=== PATIENT | male | born 1935 | race Caucasian/White ===

== ENCOUNTER 2017-05-10 09:59 | Inpatient (IN) | payer MEDICARE, MEDICAID ==
[2017-05-10] MEDS ORDERED: Ciprofloxacin 400MG IVPREMIX(* 400 MG/200 ML BAG IVPB ONE (10:10)
[2017-05-10] MEDS ORDERED: metroNIDAZOLE IV 500 MG/100ML* 500 MG/100 ML BAG IVPB ONE (10:10)
[2017-05-10] MEDS: NS 0.9% 1000 ML*IV.FLUID IV ONE ×3 (10:25→11:47)
[2017-05-10 10:31] LABS: Hematocrit 46 % (42-52); Hemoglobin 15.2 g/dl (14.0-18.0); Mean Corpuscular HGB Conc 33 g/dl (31-36); Mean Corpuscular Hemoglobin 32 pg (27-31); Mean Corpuscular Volume 95 fL (80-94); Mean Platelet Volume 9 um3 (7.4-10.4); Red Blood Count 4.83 10^6/ul (4.0-5.4); Red Cell Distribution Width 14 % (10.5-15); White Blood Count 21.3 10^3/ul (3.5-10.8)
[2017-05-10 10:33] LABS: Add Diff/Slide Review? Slide Review Added; Comments Flag Yes
[2017-05-10 10:51] LABS: Albumin 3.8 g/dL (3.2-5.2); BUN/Creatinine Ratio 23.5 (8-20); C Reactive Protein 276.41 mg/L (< 5.00); Calcium 10.2 mg/dL (8.6-10.3); EGFR African American 64.5 (>60); EGFR Non-African American 50.2 (>60); Globulin 3.9 g/dL (2-4); Potassium 3.8 mmol/L (3.5-5.0); Total Bilirubin 1.1 mg/dL (0.2-1.0); Total Protein 7.7 g/dL (6.4-8.9)
[2017-05-10 10:56] LABS: Troponin I 0.15 ng/mL (<0.04)
[2017-05-10] MEDS ORDERED: Vancomycin(*) 1,000 MG - ED ONCE IVPB ONE ×2 (11:00)
[2017-05-10] MEDS ORDERED: Vancomycin(*) 1,000 MG VIAL IVPB SCH (11:00)
[2017-05-10 11:03] LABS: FIO2 3
[2017-05-10 11:08] LABS: PCO2 Arterial 42 mmHg (35-45)
--- NOTE | 2017-05-10 11:20 | RAD ---
INDICATION: Sepsis COMPARISON: September 07, 2013 TECHNIQUE: An AP portable view obtained at 1051 hours is submitted. FINDINGS: Bones/Soft Tissues: There are no acute bony findings. There is sternotomy Cardiomediastinal: The cardiac silhouette is mildly prominent. Lungs: There are bilateral patchy interstitial and alveolar infiltrates consistent with an acute pneumonitis. Pleura: There is a moderate-sized left-sided effusion. Other: None IMPRESSION: BILATERAL PATCHY INFILTRATES CONSISTENT WITH ACUTE PNEUMONITIS. LEFT-SIDED EFFUSION.
[2017-05-10 11:35] LABS: Urine Bacteria 3+ (Absent); Urine Bilirubin Negative (Negative); Urine Glucose Negative (Negative); Urine Nitrite Positive (Negative)
[2017-05-10] MEDS ORDERED: Ondansetron INJ* 2 MG/ML VIAL IV PRN (11:48)
[2017-05-10] MEDS ORDERED: Acetaminophen SUPP* 650 MG SUPP PR PRN (11:48)
[2017-05-10 11:57] LABS: Erythrocyte Sed Rate 48 mm/Hr (0-40)
[2017-05-10] MEDS ORDERED: Cefepime(*) 1 GM in NS 0.9% 50 ML* 50 ML IVPB SCH (12:00)
[2017-05-10] MEDS ORDERED: NS 0.9% 1000 ML* 1,000 ML IV SCH ×2 (12:00→22:11)
--- NOTE | 2017-05-10 12:29 | RAD ---
HISTORY: Altered mental status COMPARISONS: December 24, 2011 TECHNIQUE: Multiple contiguous axial CT scans were obtained of the head without intravenous contrast. FINDINGS: HEMORRHAGE/INFARCT: There is no hemorrhage or acute infarct. MASSES/SHIFT: There is no mass or shift. EXTRA-AXIAL SPACES: There are no extra-axial fluid collections. SULCI AND VENTRICLES: There is diffuse and proportional enlargement of the sulci and ventricles. CEREBRUM: There is hypoattenuation of the periventricular and subcortical white matter. BRAINSTEM: There are no focal parenchymal abnormalities. CEREBELLUM: There are no focal parenchymal abnormalities. VESSELS: The vessels are grossly normal. PARANASAL SINUSES: The paranasal sinuses are clear. ORBITS: The orbits are unremarkable. BONES AND SOFT TISSUE: No bone or soft tissue abnormalities are noted. OTHER: None IMPRESSION: NO ACUTE INTRACRANIAL PATHOLOGY. DIFFUSE INVOLUTIONAL CHANGE WITH CHRONIC SMALL VESSEL ISCHEMIC CHANGES.
[2017-05-10] MEDS: Azithromycin IV(*) 500 MG in NS 0.9% 250 ML* 250 ML IVPB SCH (12:49)
[2017-05-10] MEDS: Heparin VIAL(*) 5000 UNITS/ML VIAL (FIVE THOUSAND) SUBCUT SCH ×2 (14:13→20:49)
[2017-05-10] MEDS: Pantoprazole IV* 40 MG IV SCH (14:13)
[2017-05-10] MEDS ORDERED: Cefepime 1 GM in Dextrose(*) 1 GM/50 ML BAG IV SCH (14:35)
[2017-05-10] MEDS: Zinc Oxide 16% PASTE* (Butt Paste) 1 TUBE TOPICAL SCH ×2 (18:41→20:44)
--- NOTE | 2017-05-10 18:58 | ED ---
Trung Gamez Angela, scribed for Doug Manning MD on 05/10/17 at 1013 . Altered Mental Status - HPI Summary HPI Summary: This pt is a 81 y/o male presenting to [facility] via EMS from [facility] for AMS. Nurse reports the pt is in the ED for increased weakness, lethargy and AMS. Per staff in [facility], pt is usually speaking and conversing with people. HPI is limited due to level 5 caveat - AMS. - History Of Current Complaint Chief Complaint: EDAltMentalStatus Stated Complaint: WEAKNESS Hx Obtained From: Patient Onset/Duration: Still Present Timing: Constant, Lasting Hours Character: Lethargy Aggravating Factor(s): Unknown Alleviating Factor(s): Unknown - Allergies/Home Medications Allergies/Adverse Reactions: Allergies Allergy/AdvReac Type Severity Reaction Status Date / Time Sulfamethoxazole Allergy Mild GI Upset Verified 09/07/13 02:00 w/Trimethoprim [From Septra] Amoxicillin [From Augmentin] Allergy Unknown Unknown Verified 09/07/13 02:00 Reaction Details Clavulanic Acid Allergy Unknown Unknown Verified 09/07/13 02:00 [From Augmentin] Reaction Details Home Medications: Home Medications Acetaminophen [Acetaminophen Extra Stren] 1,000 mg PO DAILY PRN MDD 1000mg 05/10 [History Confirmed 05/10/17] Mirtazapine TAB* [Remeron TAB*] 7.5 mg PO BEDTIME 05/10/17 [History Confirmed ] Omeprazole CAP* [Prilosec CAP* 20 MG] 20 mg PO BID 05/10/17 [History Confirmed 05/10/17] Senna/Docusate (NF) [Sennokot-S] 2 tab PO BID 05/10/17 [History Confirmed ] Zinc Oxide 16% PASTE* [Soy's Butt paste] 1 applic TOPICAL TID 05/10/17 [ History Confirmed 05/10/17] traMADol TAB* [Ultram*] 50 mg PO BID MDD 300mg 05/10/17 [History Confirmed 05/10] traMADol TAB* [Ultram*] 50 mg PO Q6HR PRN MDD 300mg 05/10/17 [History Confirmed 05/10/17] PMH/Surg Hx/FS Hx/Imm Hx Endocrine/Hematology History: Denies: Hx Anticoagulant Therapy, Hx Blood Disorders, Hx Blood Transfusions, Hx Bone Marrow Disease, Hx Diabetes, Hx Systemic Lupus Erythematosus, Hx Sickle Cell Disease, Hx Thyroid Disease, Hx Anemia, Hx Unexplained Bleeding, Other Endocrine/Hematological Disorders Cardiovascular History: Reports: Hx Angina, Hx Cardiac Arrest, Hx Cardiomegaly, Hx Congestive Heart Failure, Hx Coronary Artery Disease, Hx Hypercholesterolemia , Hx Hypertension, Hx Peripheral Vascular Disease Denies: Hx Aneurysm, Hx Angioplasty, Hx Auto Implanted Cardiovert Defib, Hx Congenital Heart Disease, Hx Deep Vein Thrombosis, Hx Pacemaker/ICD, Hx Rheumatic Fever, Hx Syncope, Hx Valvular Heart Disease, Other Cardiovascular Problems/Disorders Respiratory History: Reports: Hx Chronic Bronchitis, Other Respiratory Problems/ Disorders - ASPIRATION Denies: Hx Asthma, Hx Chronic Obstructive Pulmonary Disease (COPD), Hx Cystic Fibrosis, Hx Lung Cancer, Hx Pleural Effusion, Hx Pneumonia, Hx Pulmonary Edema, Hx Pulmonary Embolism, Hx Seasonal Allergies, Hx Sleep Apnea GI History: Reports: Hx Gastroesophageal Reflux Disease, Other GI Disorders - gastritis Denies: Hx Cirrhosis, Hx Crohn's Disease, Hx Diverticulosis, Hx Gall Bladder Disease, Hx Gastrointestinal Bleed, Hx Hiatal Hernia, Hx Irritable Bowel, Hx Jaundice, Hx Obstructive Bowel, Hx Ileostomy, Hx Pyloric Stenosis, Hx Ulcer History: Denies: Hx Dialysis, Hx Renal Disease Musculoskeletal History: Reports: Hx Arthritis, Hx Back Problems Denies: Hx Rheumatoid Arthritis Sensory History: Denies: Hx Cataracts, Hx Contacts or Glasses, Hx Eye Injury, Hx Eye Prosthesis, Hx Legally Blind, Hx Vision Problem, Hx Deafness, Hx Hearing Aid, Hx Hearing Problem, Other Sensory Impairments Comment Only: Hx Glaucoma - unkown, Hx Macular Degeneration - unkown Opthamlomology History: Denies: Hx Cataracts, Hx Contacts or Glasses, Hx Eye Injury, Hx Eye Prosthesis, Hx Legally Blind, Hx Vision Problem, Other Sensory Impairments Comment Only: Hx Glaucoma - unkown, Hx Macular Degeneration - unkown Neurological History: Reports: Hx Dementia, Hx Headaches, Other Neuro Impairments/Disorders - normal pressure hydrocephalus Psychiatric History: Reports: Hx Depression, Hx Bipolar Disorder Denies: Hx Anxiety, Hx Attention Deficit Hyperactivity Disorder, Hx Eating Disorder, Hx Panic Disorder, Hx Post Traumatic Stress Disorder, Hx Inpatient Treatment, Hx Community Mental Health Tx, Hx Schizophrenia, Hx Suicide Attempt, Hx of Violent Episodes Against Others, Hx Substance Abuse, Other Psychiatric Issues/Disorders - Cancer History Hx Chemotherapy: No - Surgical History Surgery Procedure, Year, and Place: distant hx hiatal hernia. CABG/BYPASS GRAFT Hx Anesthesia Reactions: No - Immunization History Date of Tetanus Vaccine: UP TO DATE Date of Influenza Vaccine: 2012 Infectious Disease History: Unable to Obtain/Confirm Infectious Disease History: Denies: Hx Clostridium Difficile, Hx Hepatitis, Hx Human Immunodeficiency Virus (HIV), Hx of Known/Suspected MRSA, Hx Shingles, Hx Tuberculosis, Hx Known/ Suspected VRE, Hx Known/Suspected VRSA, History Other Infectious Disease, Traveled Outside the [place] in Last 30 Days - Family History Known Family History: Positive: Unknown - level 5 caveat - AMS - Social History Alcohol Use: None Substance Use Type: Reports: None Hx Tobacco Use: Yes Type: Cigarettes Have You Smoked in the Last Year: No - QUIT 25+ YRS AGO Review of Systems Constitutional: Other - lethargic Negative: Fever, Chills Neurological: Other - Altered mental status, increased weakness All Other Systems Reviewed And Are Negative: No - Comments Additional Review of Systems Comments: ROS is limited due to level 5 caveat - AMS Physical Exam - Summary Physical Exam Summary: VITAL SIGNS: Reviewed. GENERAL: Patient is a well-developed male. Patient is not in any acute respiratory distress. Pt is lethargic. HEAD AND FACE: No signs of trauma. No ecchymosis, hematomas or skull depressions. No sinus tenderness. EYES: PERRLA, EOMI x 2, No injected conjunctiva, no nystagmus. EARS: Hearing grossly intact. Ear canals and tympanic membranes are within normal limits. MOUTH: Oropharynx within normal limits. Oral mucosa is dry. NECK: Supple, trachea is midline, no adenopathy, no JVD, no carotid bruit, no c- spine tenderness, neck with full ROM. CHEST: Symmetric, no tenderness at palpation LUNGS: Clear to auscultation bilaterally. No wheezing or crackles. CVS: Regular rate and rhythm, S1 and S2 present, no murmurs or gallops appreciated. ABDOMEN: Soft, non-tender. No signs of distention. No rebound no guarding, and no masses palpated. Bowel sounds are normal. EXTREMITIES: FROM in all major joints, no edema, no cyanosis or clubbing. There is no cellulitis. NEURO: Alert and oriented x 3. No acute neurological deficits. Speech is normal and follows commands. SKIN: Dry and warm Triage Information Reviewed: Yes Vital Signs On Initial Exam: Initial Vitals Temp Pulse Resp BP Pulse Ox 99.1 F 101 29 111/78 97 05/10/17 10:02 05/10/17 10:02 05/10/17 10:02 05/10/17 10:02 05/10/17 10:02 Vital Signs Reviewed: Yes Completion Of Physical Exam Limited Due To: Level 5 - AMS Diagnostics - Vital Signs Vital Signs Temp Pulse Resp BP Pulse Ox 05/10/17 10:02 99.1 F 101 29 111/78 97 - Laboratory Lab Results: Lab Results 05/10/17 05/10/17 05/10/17 Range/Units 10:20 10:20 10:20 WBC (3.5-10.8) 10^3/ul RBC (4.0-5.4) 10^6/ul Hgb (14.0-18.0) g/dl Hct (42-52) % MCV (80-94) fL MCH (27-31) pg MCHC (31-36) g/dl RDW (10.5-15) % Plt Count (150-450) 10^3/ul MPV (7.4-10.4) um3 Neut % (Auto) (38-83) % Lymph % (Auto) (25-47) % [place] % (Auto) (1-9) % Eos % (Auto) (0-6) % Baso % (Auto) (0-2) % Absolute Neuts (auto) (1.5-7.7) 10^3/ul Absolute Lymphs (auto) (1.0-4.8) 10^3/ul Absolute Monos (auto) (0-0.8) 10^3/ul Absolute Eos (auto) (0-0.6) 10^3/ul Absolute Basos (auto) (0-0.2) 10^3/ul Absolute Nucleated RBC 10^3/ul Nucleated RBC % ESR (0-40) mm/Hr INR (Anticoag Therapy) 1.06 (0.89-1.11) APTT 28.5 (26.0-36.3) seconds Fibrinogen 632 H (110.8-404.3) mg/dL Patient Temperature ABG pH (7.35-7.45) ABG pH (Temp Correct) ABG pCO2 (35-45) mmHg ABG pCO2 (Temp Corrct ABG pO2 (80-100) mmHg ABG pO2 (Temp Correct ABG HCO3 (19-31) mmol/L ABG O2 Saturation (95-98) % ABG Base Excess (-2.0-2.0) Respiration Rate O2 Delivery Device Ventilator Type Vent Mode FiO2 Inspiratory Time PEEP Pressure Support Pressure Control EPAP IPAP BiPAP Sodium 144 (133-145) mmol/L Potassium 3.8 (3.5-5.0) mmol/L Chloride 107 (101-111) mmol/L Carbon Dioxide 26 (22-32) mmol/L Anion Gap 11 (2-11) mmol/L BUN 32 H (6-24) mg/dL Creatinine 1.36 H (0.67-1.17) mg/dL Est GFR ( Amer) 64.5 (>60) Est GFR (Non-Af Amer) 50.2 (>60) BUN/Creatinine Ratio 23.5 H (8-20) Glucose 135 H (70-100) mg/dL Lactic Acid (0.5-2.0) mmol/L Calcium 10.2 (8.6-10.3) mg/dL Total Bilirubin 1.10 H (0.2-1.0) mg/dL AST 15 (13-39) U/L ALT 8 (7-52) U/L Alkaline Phosphatase 73 (34-104) U/L Total Creatine Kinase 314 H (10-223) U/L Troponin I 0.15 H* (<0.04) ng/mL C-Reactive Protein 276.41 H (< 5.00) mg/L B-Natriuretic Peptide 266 H ( - 100) pg/mL Total Protein 7.7 (6.4-8.9) g/dL Albumin 3.8 (3.2-5.2) g/dL Globulin 3.9 (2-4) g/dL Albumin/Globulin Ratio 1.0 (1-3) Procalcitonin (<0.6) ng/mL Urine Color Urine Appearance Urine pH (5-9) Ur Specific Susan (1.010-1.030) Urine Protein (Negative) Urine Ketones (Negative) Urine Blood (Negative) Urine Nitrate (Negative) Urine Bilirubin (Negative) Urine Urobilinogen (Negative) Ur Leukocyte Esterase (Negative) Urine WBC (Auto) (Absent) Urine RBC (Auto) (Absent) Urine Bacteria (Absent) Urine Glucose (Negative) Influenza A (Rapid) (Negative) Influenza B (Rapid) (Negative) 05/10/17 05/10/17 05/10/17 Range/Units 10:20 10:20 10:20 WBC 21.3 H (3.5-10.8) 10^3/ul RBC 4.83 (4.0-5.4) 10^6/ul Hgb 15.2 (14.0-18.0) g/dl Hct 46 (42-52) % MCV 95 H (80-94) fL MCH 32 H (27-31) pg MCHC 33 (31-36) g/dl RDW 14 (10.5-15) % Plt Count 310 (150-450) 10^3/ul MPV 9 (7.4-10.4) um3 Neut % (Auto) 92.0 H (38-83) % Lymph % (Auto) 4.4 L (25-47) % [place] % (Auto) 3.2 (1-9) % Eos % (Auto) 0.1 (0-6) % Baso % (Auto) 0.3 (0-2) % Absolute Neuts (auto) 19.6 H (1.5-7.7) 10^3/ul Absolute Lymphs (auto) 0.9 L (1.0-4.8) 10^3/ul Absolute Monos (auto) 0.7 (0-0.8) 10^3/ul Absolute Eos (auto) 0 (0-0.6) 10^3/ul Absolute Basos (auto) 0.1 (0-0.2) 10^3/ul Absolute Nucleated RBC 0 10^3/ul Nucleated RBC % 0 ESR 48 H (0-40) mm/Hr INR (Anticoag Therapy) (0.89-1.11) APTT (26.0-36.3) seconds Fibrinogen (110.8-404.3) mg/dL Patient Temperature ABG pH (7.35-7.45) ABG pH (Temp Correct) ABG pCO2 (35-45) mmHg ABG pCO2 (Temp Corrct ABG pO2 (80-100) mmHg ABG pO2 (Temp Correct ABG HCO3 (19-31) mmol/L ABG O2 Saturation (95-98) % ABG Base Excess (-2.0-2.0) Respiration Rate O2 Delivery Device Ventilator Type Vent Mode FiO2 Inspiratory Time PEEP Pressure Support Pressure Control EPAP IPAP BiPAP Sodium (133-145) mmol/L Potassium (3.5-5.0) mmol/L Chloride (101-111) mmol/L Carbon Dioxide (22-32) mmol/L Anion Gap (2-11) mmol/L BUN (6-24) mg/dL Creatinine (0.67-1.17) mg/dL Est GFR ( Amer) (>60) Est GFR (Non-Af Amer) (>60) BUN/Creatinine Ratio (8-20) Glucose (70-100) mg/dL Lactic Acid 1.3 (0.5-2.0) mmol/L Calcium (8.6-10.3) mg/dL Total Bilirubin (0.2-1.0) mg/dL AST (13-39) U/L ALT (7-52) U/L Alkaline Phosphatase (34-104) U/L Total Creatine Kinase (10-223) U/L Troponin I (<0.04) ng/mL C-Reactive Protein (< 5.00) mg/L B-Natriuretic Peptide ( - 100) pg/mL Total Protein (6.4-8.9) g/dL Albumin (3.2-5.2) g/dL Globulin (2-4) g/dL Albumin/Globulin Ratio (1-3) Procalcitonin 0.5 (<0.6) ng/mL Urine Color Urine Appearance Urine pH (5-9) Ur Specific Susan (1.010-1.030) Urine Protein (Negative) Urine Ketones (Negative) Urine Blood (Negative) Urine Nitrate (Negative) Urine Bilirubin (Negative) Urine Urobilinogen (Negative) Ur Leukocyte Esterase (Negative) Urine WBC (Auto) (Absent) Urine RBC (Auto) (Absent) Urine Bacteria (Absent) Urine Glucose (Negative) Influenza A (Rapid) (Negative) Influenza B (Rapid) (Negative) 05/10/17 05/10/17 05/10/17 Range/Units 10:55 11:12 11:31 WBC (3.5-10.8) 10^3/ul RBC (4.0-5.4) 10^6/ul Hgb (14.0-18.0) g/dl Hct (42-52) % MCV (80-94) fL MCH (27-31) pg MCHC (31-36) g/dl RDW (10.5-15) % Plt Count (150-450) 10^3/ul MPV (7.4-10.4) um3 Neut % (Auto) (38-83) % Lymph % (Auto) (25-47) % [place] % (Auto) (1-9) % Eos % (Auto) (0-6) % Baso % (Auto) (0-2) % Absolute Neuts (auto) (1.5-7.7) 10^3/ul Absolute Lymphs (auto) (1.0-4.8) 10^3/ul Absolute Monos (auto) (0-0.8) 10^3/ul Absolute Eos (auto) (0-0.6) 10^3/ul Absolute Basos (auto) (0-0.2) 10^3/ul Absolute Nucleated RBC 10^3/ul Nucleated RBC % ESR (0-40) mm/Hr INR (Anticoag Therapy) (0.89-1.11) APTT (26.0-36.3) seconds Fibrinogen (110.8-404.3) mg/dL Patient Temperature Not Reportable ABG pH 7.37 (7.35-7.45) ABG pH (Temp Correct) Not Reportable ABG pCO2 42 (35-45) mmHg ABG pCO2 (Temp Corrct Not Reportable ABG pO2 142 H (80-100) mmHg ABG pO2 (Temp Correct Not Reportable ABG HCO3 24.1 (19-31) mmol/L ABG O2 Saturation 99.6 H (95-98) % ABG Base Excess -1.1 (-2.0-2.0) Respiration Rate Not Reportable O2 Delivery Device nasal cannula Ventilator Type Not Reportable Vent Mode Not Reportable FiO2 3 Inspiratory Time Not Reportable PEEP Not Reportable Pressure Support Not Reportable Pressure Control Not Reportable EPAP Not Reportable IPAP Not Reportable BiPAP Not Reportable Sodium (133-145) mmol/L Potassium (3.5-5.0) mmol/L Chloride (101-111) mmol/L Carbon Dioxide (22-32) mmol/L Anion Gap (2-11) mmol/L BUN (6-24) mg/dL Creatinine (0.67-1.17) mg/dL Est GFR ( Amer) (>60) Est GFR (Non-Af Amer) (>60) BUN/Creatinine Ratio (8-20) Glucose (70-100) mg/dL Lactic Acid (0.5-2.0) mmol/L Calcium (8.6-10.3) mg/dL Total Bilirubin (0.2-1.0) mg/dL AST (13-39) U/L ALT (7-52) U/L Alkaline Phosphatase (34-104) U/L Total Creatine Kinase (10-223) U/L Troponin I (<0.04) ng/mL C-Reactive Protein (< 5.00) mg/L B-Natriuretic Peptide ( - 100) pg/mL Total Protein (6.4-8.9) g/dL Albumin (3.2-5.2) g/dL Globulin (2-4) g/dL Albumin/Globulin Ratio (1-3) Procalcitonin (<0.6) ng/mL Urine Color Sophie Urine Appearance Cloudy Urine pH 5.0 (5-9) Ur Specific Susan 1.027 (1.010-1.030) Urine Protein 2+(100 mg/dl) H (Negative) Urine Ketones 1+ H (Negative) Urine Blood 3+ H (Negative) Urine Nitrate Positive H (Negative) Urine Bilirubin Negative (Negative) Urine Urobilinogen Positive H (Negative) Ur Leukocyte Esterase 2+ H (Negative) Urine WBC (Auto) 3+(>20/hpf) H (Absent) Urine RBC (Auto) 3+(>10/hpf) H (Absent) Urine Bacteria 3+ H (Absent) Urine Glucose Negative (Negative) Influenza A (Rapid) Negative (Negative) Influenza B (Rapid) Negative (Negative) Result Diagrams: 05/10/17 10:20 05/10/17 10:20 Lab Statement: Any lab studies that have been ordered have been reviewed, and results considered in the medical decision making process. - Radiology Chest XR Xray Interpretation: Positive (See Comments) - IMPRESSION: Bilateral patchy infiltrates consistent with acute pneumonitis. Left-sided effusion. ED physician has reviewed this radiology report and agrees. Radiology Interpretation Completed By: Radiologist - CT Brain CT CT Interpretation: No Acute Changes - IMPRESSION: No acute intracranial pathology. Diffuse involutional change with chronic small vessel ischemic changes. ED physician has reviewed this radiology report and agrees. CT Interpretation Completed By: Radiologist - EKG 1044 Cardiac Rate: NL EKG Rhythm: Sinus Rhythm - at 91 bpm EKG Interpretation: No ST elevation. Q waves in II and aVF. EKG Comparison: No Significant Change - similar to prior EKG done on 09/07/13. Altered Mental Statu Course/Dx - Course Assessment/Plan: This pt is a 81 y/o male presenting to [facility] via EMS from [facility] for AMS. Nurse reports the pt is in the ED for increased weakness, lethargy and AMS. Per staff in [facility], pt is usually speaking and conversing with people. HPI is limited due to level 5 caveat - AMS. Test results shows WBC of 21.3, ESR of 48, fibrinogen of 632, acute renal failure, troponin of 0.15 , CPR of 276, BNP of 266. Urinalysis is positive for UTI. Influenza A and B are negative. Chest XR shows bilateral patchy infiltrates consistent with acute pneumonitis. Left-sided effusion. Head CT shows no acute intracranial pathology. Diffuse involutional change with chronic small vessel ischemic changes. Initially the pt was given 3 ccs/kg of IV fluids, and was started on vancomycin, Ciprofloxacin and Flagyl, since the pt is allergic to amoxicillin. These antibiotics will cover UTI and pneumonia for this pt. At this time I discussed the results with Dr. Galvan, from the hospitalist services, who accepted the pt for admission. - Diagnoses Discharge Diagnoses: Pneumonia, UTI (urinary tract infection), Sepsis, Altered mental status, Dehydration - Provider Notifications Discussed Care Of Patient With: Antonio Galvan Time Discussed With Above Provider: 10:57 Instructed by Provider To: Other - I discussed the pt's case with Dr. Galvan, who has accepted the pt for admission. - Critical Care Time Critical Care Time: 30-74 min Discharge - Discharge Plan Condition: Stable Disposition: ADMITTED TO [facility] The documentation as recorded by the Trung person Angela accurately reflects the service I personally performed and the decisions made by me, Doug Manning MD.
--- NOTE | 2017-05-10 20:22 | HP ---
CC: Dr. Bennett, [facility] * HISTORY AND PHYSICAL: DATE OF ADMISSION: 05/10/17 PRIMARY CARE PROVIDER: Dr. Bennett from [facility]. ATTENDING PHYSICIAN WHILE IN THE HOSPITAL: Kristin Osborn MD * (report dictated by Padilla Smart NP). CHIEF COMPLAINT: 1. Altered mental status. 2. Fever. 3. Cough. HISTORY OF PRESENTING ILLNESS: Mr. Bergeron is an 81-year-old male patient. He carries a history of dementia, normal pressure hydrocephalus, CAD, cardiomyopathy, AAA, history of atrial septal defect, hypertension, aspiration pneumonia, venous stasis, dermatitis, incontinence, depression, CVA, melanoma, history of constipation, history of RI. He comes in to our ER today. According to the [facility] staff, the patient because of underlying infection and dementia, is really unable to give much history. He just says he feels dry and that he denies having any pain or chest pain or shortness of breath, but in discussion with the patient's son and reviewing [facility] notes, it has been noted that in the last couple of days the patient has had a progressive decline in his mentation and is becoming more confused, more drowsy, not acting himself normally. On typical day, he is conversive. They have noticed in the last couple of days that he has not been able to do this and he has also not been really eating or drinking. The son did state that over the last week he has had a cough. There has been no reports of choking reported by [facility] staff or by the patient, but because of his mentation and the fact that he had a fever today and that he had been coughing, there was concern for underlying infection and he was brought into the ER, evaluated and appeared to be in severe sepsis secondary to bilateral pneumonia. We were asked to evaluate for admission. PAST MEDICAL HISTORY: Significant for: 1. Dementia. 2. NPH. 3. CAD. 4. Cardiomyopathy, last known EF was 45% to 50%. 5. AAA. 6. Atrial septal defect. 7. Hypertension. 8. History of aspiration. 9. Venous stasis. 10. Dermatitis. 11. Incontinence. 12. Depression. 13. History of CVA's. 14. Melanoma. 15. Constipation. PAST SURGICAL HISTORY: 1. The patient has had CABG. 2. Cardiac catheterization. 3. Carotid endarterectomy. 4. Inguinal hernia repair. 5. Melanoma resection. MEDICATIONS: His home meds according to the list that we obtained include: 1. Tylenol Extra Strength 1000 mg p.o. daily as needed. 2. Tramadol 50 mg p.o. b.i.d. 3. Tramadol 50 mg p.o. every 6 hours as needed. 4. Remeron 7.5 mg p.o. at bedtime. 5. Flomax 0.4 mg daily. 6. Prilosec 20 mg p.o. b.i.d. 7. Zinc oxide 1 application topically t.i.d. 8. Aspirin 81 mg daily. 9. Travatan 1 drop both eyes at bedtime. 10. Senokot-S 2 tablets p.o. b.i.d. ALLERGIES TO MEDICATIONS: Include BACTRIM and AUGMENTIN. FAMILY HISTORY: Unable to be obtained because of the current mentation. SOCIAL HISTORY: He is a nonsmoker. He does not drink. He lives at [facility]. Surrogate decision is his son, Momo. REVIEW OF SYSTEMS: Again, difficult to obtain given the patient's underlying mentation, but he does state that to his knowledge he has no fever, but there is one documented from [facility]. There has been no significant weight change. He denies any double vision. He denies headaches. He denies chest pain. He denies shortness of breath. He denies nausea. He denies any skin ulcerations. He denies any urinary symptoms. Review of 14 systems completed, all others negative. PHYSICAL EXAMINATION GENERAL: At this time, Mr. Bergeron is an 81-year-old male patient. He appears to be chronically ill appearing. He does not appear to be in any acute distress. VITAL SIGNS: Blood pressure 111/78; pulse 101; respirations were 29, they are now 23 to 24; O2 sat 97% on 3 L; temperature 99.1. HEENT: Head: Atraumatic. Eyes: EOMs intact. Sclerae anicteric. Throat: Oral mucosa appears to be dry. No oropharyngeal erythema. NECK: Supple. LUNGS: He had rhonchi noted in the upper lobes. Equal diaphragmatic expansion. HEART: Sounds S1, S2. Regular rate and rhythm. No murmurs, rubs, or gallops. ABDOMEN: Soft, flat, nontender. Bowel sounds present. EXTREMITIES: Pulses 2+ throughout. He is able to move all 4 extremities with 5 /5 strength. NEUROLOGICAL: He will awaken to his name. He is alert to his name only and is confused to time and place. His speech is clear. His tongue is midline. He had no gross obvious focal deficits, but he does appear to be pretty drowsy. SKIN: His skin is intact. DIAGNOSTIC STUDIES/LAB DATA: WBC of 21.3, RBC of 4.83, hemoglobin of 15.2, hematocrit 46, platelet count of 310,000. INR 1.06. PTT 28.5. Fibrinogen 632. Blood gas; pH of 7.37, pCO2 of 42, pO2 of 142. Sodium 144, potassium 3.8, chloride of 107, bicarb 27, BUN 32, creatinine 1.36, glucose 135, lactate 1.3, calcium 10. Total bili 1.1, AST 15, ALT 8, alk phos 73. CK 314. Troponin 0.15. His CRP was 276, BNP 266, procalcitonin 0.5. Urine is pending. Serology is pending for fluids. Chest x-ray under my review does appear to have bilateral infiltrates. Radiology read it as bilateral patchy infiltrates consistent with acute pneumonitis, left- sided effusion. He had an EKG obtained today as well, which revealed a normal sinus rhythm with a rate of 91. No ST elevations or T-wave inversions were noted. Old medical records were reviewed. ASSESSMENT AND PLAN: Mr. Bergeron is an 81-year-old male patient coming into the ER today with complaints of fever, altered mental status. On evaluation, he was found to have bilateral pneumonia. He will be admitted under inpatient status to our ICU for: 1. Severe sepsis secondary to bilateral pneumonia. I suspect that this is causing his altered mental status and it is also probably driving the troponin. He has a little bit of demand ischemia and he has some acute renal failure, which is probably secondary to acute tubular necrosis and severe dehydration. My plan is to go ahead and he has been bolused down in the ER approximately 2.5 L. In addition to this, we will continue saline at [address] We will also place him on cefepime, Flagyl. I will also place him on azithromycin. We will check Legionella antigen, strep pneumo antigen. I will get a sputum culture and flu swab as well. In addition to this, the ER has sent off blood cultures already and we will continue to follow him closely. He is a do not intubate. I did reiterate to the son that he could deteriorate despite our best efforts. He may require further modalities for his breathing status should it deteriorate such as Vapotherm or BiPAP. The son is aware of this and again did not want to pursue with intubation, so if he were to deteriorate we would keep him comfortable at this point, though we are going to try antibiotics, fluids at this point. 2. History of dementia with acute delirium, continue with his medical regimen and supportive care. 3. Normal pressure hydrocephalus. I will get a CT of the brain, but I do suspect the altered mental status is probably secondary to the underlying infection. 4. Coronary artery disease. Again, not an active issue currently. We will continue his current medical regimen. When he is able to take p.o., we will get him back on his aspirin. 5. Cardiomyopathy. We will diurese him as needed. He is currently not on any diuretics. 6. History of abdominal aortic aneurysm. Follow up with primary. 7. Hypertension. Blood pressure is stable. I am not going to start any medications at this point. 8. History of aspiration. He may have aspirated, causing his pneumonia here today. Plan: We will make him n.p.o. and get swallow eval. 9. History of venous stasis and dermatitis. Continue his current medical regimen. 10. History of incontinence. We are placing a Rojas to monitor the I's and O' s acutely. 11. Acute renal failure. At this point, we will get a FeNa and place the Rojas and monitor the urine output closely. 12. History of cerebrovascular accident. Again, start aspirin when we are able for secondary prevention. 13. Melanoma. Follow up with primary. 14. Constipation. Again when he is able to take p.o., we will get him back on his bowel regimen. 15. Depression. Continue supportive care. 16. DVT prophylaxis: He is high risk. He will be placed on heparin subcu. 17. Code status: He is a DNR/DNI. 18. Elevated troponins probably secondary to demand ischemia. We will trend these, if they do continue to be elevated, we will continue getting an echo. His EKG did appear to be stable. The plan again would be to just trend these for the time being, as it is probably secondary to the sepsis. 19. Fluids, electrolytes, and nutrition: He is n.p.o. He will have normal saline at 100 an hour. TIME SPENT: On this admission was approximately 60 minutes, greater than half the time was spent [id number] with the patient obtaining my history and physical, other half time was spent going over the plan of care with the patient and implementing the plan of care. I did discuss the plan of care with my attending, Dr. Osborn; she is in agreement. PADILLA SMART, SLY [id number]/[facility] #: [id number] MTDDamion
[2017-05-10] MEDS: metroNIDAZOLE IV 500 MG/100ML* 500 MG/100 ML BAG IVPB SCH (20:44)
[2017-05-10] MEDS: Latanoprost 0.005%* 2.5 ml BTL BOTH EYES SCH (20:44)
[2017-05-11] MEDS: Cefepime 1 GM in Dextrose(*) 1 GM/50 ML BAG IV SCH ×2 (02:22→15:31)
[2017-05-11] MEDS: metroNIDAZOLE IV 500 MG/100ML* 500 MG/100 ML BAG IVPB SCH ×3 (04:33→19:57)
[2017-05-11] MEDS: Heparin VIAL(*) 5000 UNITS/ML VIAL (FIVE THOUSAND) SUBCUT SCH ×3 (05:20→20:57)
[2017-05-11 05:50] LABS: Hematocrit 37 % (42-52); Hemoglobin 11.9 g/dl (14.0-18.0); Mean Corpuscular HGB Conc 32 g/dl (31-36); Mean Corpuscular Hemoglobin 31 pg (27-31); Mean Corpuscular Volume 95 fL (80-94); Mean Platelet Volume 9 um3 (7.4-10.4); Red Blood Count 3.86 10^6/ul (4.0-5.4); Red Cell Distribution Width 14 % (10.5-15); White Blood Count 14.5 10^3/ul (3.5-10.8)
[2017-05-11 06:00] LABS: BUN/Creatinine Ratio 20.4 (8-20); Calcium 8.5 mg/dL (8.6-10.3); EGFR African American 88.9 (>60); EGFR Non-African American 69.1 (>60); Potassium 3.3 mmol/L (3.5-5.0)
[2017-05-11] MEDS: Azithromycin IV(*) 500 MG in NS 0.9% 250 ML* 250 ML IVPB SCH (12:11)
[2017-05-11] MEDS: Zinc Oxide 16% PASTE* (Butt Paste) 1 TUBE TOPICAL SCH ×3 (12:12→20:57)
[2017-05-11] MEDS: Pantoprazole IV* 40 MG IV SCH (14:21)
[2017-05-11] MEDS: KCL 20 MEQ/100 ML IVPREMIX* 20 MEQ/100 ML BAG IV SCH ×3 (14:47→18:25)
[2017-05-11] MEDS ORDERED: Cefepime(*) 1 GM in NS 0.9% 50 ML* 50 ML IVPB ONE (15:00)
[2017-05-11] MEDS: D5W 1/2 NS 1000 ML BAG* 1,000 ML IV SCH (15:48)
[2017-05-11] MEDS: Latanoprost 0.005%* 2.5 ml BTL BOTH EYES SCH (20:57)
--- NOTE | 2017-05-11 22:30 | PN ---
Subjective Date of Service: 05/11/17 Interval History: Pt with improved mentation and leukocytosis (21.3 to 14.5). NA to 147. CARDIAC CATH TECHNICIAN improved 1.36 to 1.03. Troponins flat 0.15-0.16. Reportedly needs Ross for transfers at [facility]. Objective Active Medications: Acetaminophen (Tylenol Supp*) 650 mg TX Q4H PRN PRN Reason: FEVER/PAIN Heparin Sodium (Porcine) (Heparin Vial(*)) 5,000 units SUBCUT Q8HR [facility] Last Admin: 05/11/17 20:57 Dose: 5,000 units Metronidazole/Sodium Chloride (Flagyl 500 Mg Ivpb*) 500 mg in 100 mls @ 100 mls /hr IVPB Q8H [facility] Last Admin: 05/11/17 19:57 Dose: 100 mls/hr Sodium Chloride (Ns 0.9% 1000 Ml*) 1,000 mls @ 100 mls/hr IV PER RATE [facility] Last Admin: 05/10/17 13:42 Dose: 100 mls/hr Azithromycin 500 mg/ Sodium (Chloride) 250 mls @ 250 mls/hr IVPB Q24H [facility] Last Admin: 05/11/17 12:11 Dose: 250 mls/hr Cefepime HCl (Maxipime 1 Gm In Dextrose Duplex (*)) 1 gm in 50 mls @ 100 mls/ hr IV 0200,1400 [facility] Last Admin: 05/11/17 15:31 Dose: Not Given Dextrose/Sodium Chloride (D5w 1/2 Ns 1000 Ml Bag*) 1,000 mls @ 75 mls/hr IV PER RATE [facility] Stop: 05/12/17 09:59 Last Admin: 05/11/17 15:48 Dose: 75 mls/hr Influenza Virus Vaccine (Fluarix *Quad* *) 0.5 ml IM .ONCE ONE Stop: 05/12/17 09:01 Latanoprost (Xalatan 0.005%*) 1 drop BOTH EYES BEDTIME [facility] PRN Reason: Protocol Last Admin: 05/11/17 20:57 Dose: 1 drop Ondansetron HCl (Zofran Inj*) 4 mg IV Q6H PRN PRN Reason: NAUSEA Pantoprazole Sodium (Protonix Iv*) 40 mg IV Q24H [facility] Last Admin: 05/11/17 14:21 Dose: 40 mg Zinc Oxide (Soy's Butt Paste) 1 applic TOPICAL TID JEFFREY Last Admin: 05/11/17 20:57 Dose: 1 applic Vital Signs 05/10/17 05/10/17 05/10/17 22:30 23:00 23:08 Temperature Pulse Rate 90 85 Respiratory 26 28 25 Rate Blood Pressure 124/78 97/56 (mmHg) O2 Sat by Pulse 96 93 Oximetry 05/10/17 05/10/17 05/10/17 23:30 23:50 23:52 Temperature 99.9 F Pulse Rate 92 85 Respiratory 33 26 Rate Blood Pressure 96/60 (mmHg) O2 Sat by Pulse 93 93 Oximetry 05/10/17 05/11/17 05/11/17 23:59 00:00 00:30 Temperature Pulse Rate 82 81 Respiratory 27 26 28 Rate Blood Pressure 87/52 89/52 (mmHg) O2 Sat by Pulse 95 94 Oximetry 05/11/17 05/11/17 05/11/17 01:00 01:10 01:30 Temperature Pulse Rate 77 81 Respiratory 27 23 25 Rate Blood Pressure 88/57 99/58 (mmHg) O2 Sat by Pulse 95 95 Oximetry 05/11/17 05/11/17 05/11/17 01:37 02:00 02:03 Temperature Pulse Rate 84 Respiratory 28 25 Rate Blood Pressure 114/63 (mmHg) O2 Sat by Pulse 96 95 Oximetry 05/11/17 05/11/17 05/11/17 02:54 03:00 03:43 Temperature Pulse Rate 79 Respiratory 26 26 25 Rate Blood Pressure 91/54 (mmHg) O2 Sat by Pulse 95 Oximetry 05/11/17 05/11/17 05/11/17 04:00 04:46 05:00 Temperature 99.3 F Pulse Rate 75 80 Respiratory 25 25 22 Rate Blood Pressure 108/62 97/57 (mmHg) O2 Sat by Pulse 95 95 Oximetry 05/11/17 05/11/17 05/11/17 05:59 06:00 07:00 Temperature Pulse Rate 79 76 Respiratory 25 25 26 Rate Blood Pressure 101/57 107/65 (mmHg) O2 Sat by Pulse 94 95 Oximetry 05/11/17 05/11/17 05/11/17 07:38 07:53 08:00 Temperature 99.4 F Pulse Rate 72 Respiratory 25 25 Rate Blood Pressure 130/80 (mmHg) O2 Sat by Pulse 95 Oximetry 05/11/17 05/11/17 05/11/17 09:00 10:00 11:00 Temperature Pulse Rate 88 82 89 Respiratory 26 27 30 Rate Blood Pressure 125/82 131/88 124/85 (mmHg) O2 Sat by Pulse 96 96 96 Oximetry 05/11/17 05/11/17 05/11/17 12:00 12:04 12:05 Temperature 98.5 F Pulse Rate 87 87 Respiratory 27 33 30 Rate Blood Pressure 128/80 (mmHg) O2 Sat by Pulse 90 89 Oximetry 05/11/17 05/11/17 05/11/17 13:00 14:00 15:00 Temperature Pulse Rate 83 79 84 Respiratory 25 26 29 Rate Blood Pressure 113/69 120/72 125/81 (mmHg) O2 Sat by Pulse 97 97 96 Oximetry 05/11/17 05/11/17 05/11/17 15:54 16:00 17:00 Temperature 99.2 F Pulse Rate 72 79 Respiratory 25 27 Rate Blood Pressure 127/74 133/80 (mmHg) O2 Sat by Pulse 94 96 Oximetry 05/11/17 05/11/17 05/11/17 18:00 19:00 19:06 Temperature Pulse Rate 92 86 86 Respiratory 33 27 29 Rate Blood Pressure 142/94 (mmHg) O2 Sat by Pulse 97 98 97 Oximetry 05/11/17 05/11/17 05/11/17 19:15 19:58 20:00 Temperature 99.4 F Pulse Rate 87 Respiratory 24 26 Rate Blood Pressure 106/79 (mmHg) O2 Sat by Pulse 98 95 Oximetry 05/11/17 21:00 Temperature Pulse Rate 84 Respiratory 25 Rate Blood Pressure 122/79 (mmHg) O2 Sat by Pulse 96 Oximetry Oxygen Devices in Use Now: None Appearance: Arousable but tired appearing. Eyes: No Scleral Icterus, PERRLA Ears/Nose/Mouth/Throat: - - dry MM Neck: NL Appearance and Movements; NL JVP Respiratory: Symmetrical Chest Expansion and Respiratory Effort, - - anteriorly w/o rales or wheezing, some rhonchi Cardiovascular: NL Sounds; No Murmurs; No JVD, RRR Neurological: - - can wiggle toes but otherwise hip flexion lacking; digital x ray service engineer 4/5 right; 3/5 left. Result Diagrams: 05/11/17 05:22 05/11/17 05:22 Additional Lab and Data: Laboratory Results - last 24 hr 05/10/17 05/11/17 05/11/17 23:57 05:22 05:22 WBC 14.5 H RBC 3.86 L Hgb 11.9 L Hct 37 L MCV 95 H MCH 31 MCHC 32 RDW 14 Plt Count 236 MPV 9 Neut % (Auto) 86.5 H Lymph % (Auto) 8.4 L [place] % (Auto) 4.8 Eos % (Auto) 0 Baso % (Auto) 0.3 Absolute Neuts (auto) 12.5 H Absolute Lymphs (auto) 1.2 Absolute Monos (auto) 0.7 Absolute Eos (auto) 0 Absolute Basos (auto) 0 Absolute Nucleated RBC 0.01 Nucleated RBC % 0 Sodium 147 H Potassium 3.3 L Chloride 116 H Carbon Dioxide 26 Anion Gap 5 BUN 21 Creatinine 1.03 Est GFR ( Amer) 88.9 Est GFR (Non-Af Amer) 69.1 BUN/Creatinine Ratio 20.4 H Glucose 103 H Calcium 8.5 L Troponin I 0.15 H* Microbiology and Other Data: Microbiology 05/11/17 19:00 Sputum Gram Stain - Preliminary 05/10/17 11:12 Urine Urine Culture - Final No Growth (<1,000 CFU/mL) 05/10/17 10:43 Blood Venous Aerobic Blood Culture - Preliminary No Growth Day 1 05/10/17 10:43 Blood Venous Anaerobic Blood Culture - Preliminary No Growth Day 1 05/10/17 10:20 Blood Venous Aerobic Blood Culture - Preliminary No Growth Day 1 05/10/17 10:20 Blood Venous Anaerobic Blood Culture - Preliminary No Growth Day 1 05/10/17 11:15 Nasal Nasal Screen MRSA (PCR)(EUGENIA) - Final Mrsa Negative 05/10/17 14:20 Urine Legionella Urinary Antigen - Final Negative Legionella 05/10/17 14:20 Urine Streptococcus pneumoniae Ag Screen - Final Negative S. pneumo Antigen 05/10/17 11:15 Nasopharyngeal Influenza Types A,B Antigen (EUGENIA) - Final Specimen received for Influenza A/B Molecular testing Assess/Plan/Problems-Billing Assessment: 81 yo male presenting from [facility] w/ [facility] dementia, CAD s/p CABG, CM, AAA, HTN , NPH, CVA, requires ross lift p/w with severe sepsis 2/2 pneumonia. AMANDEEP ( improved). On cefipime/azithromycin. - Patient Problems (1) Severe sepsis Current Visit: Yes Status: Acute Code(s): A41.9 - SEPSIS, UNSPECIFIED ORGANISM; R65.20 - SEVERE SEPSIS WITHOUT SEPTIC SHOCK SNOMED Code(s): 60936782 Comment: SIRS (fever, leukocytosis) 2/2 pneumonia qSofa (AMS, tachypnea) Has been on cefipime 1g q12, azithromycin, flagyl. Will stop flagyl (unclear indication) and increase to 2gq8 cefipime for anti-psuedomonal/HCAP dosing given improved renal function. f/u sputum Cx MRSA negative legionella and Strep Pna urine antigens negative. (2) Pneumonia Current Visit: Yes Status: Acute Code(s): J18.9 - PNEUMONIA, UNSPECIFIED ORGANISM SNOMED Code(s): 193784521 Comment: plan as above. (3) CAD (coronary artery disease) Current Visit: Yes Status: Acute Code(s): I25.10 - ATHSCL HEART DISEASE OF [place] CORONARY ARTERY W/O ANG PCTRS SNOMED Code(s): 58830297 Comment: restart aspirin 81mg daily (4) AMANDEEP (acute kidney injury) Current Visit: Yes Status: Acute Code(s): N17.9 - ACUTE KIDNEY FAILURE, UNSPECIFIED SNOMED Code(s): 29987720 Comment: improved. (5) Hypernatremia Current Visit: Yes Status: Acute Code(s): E87.0 - HYPEROSMOLALITY AND HYPERNATREMIA SNOMED Code(s): 46388946 Comment: d5 1/2 NS. repeat BMP in AM (6) Altered mental status Current Visit: Yes Status: Acute Code(s): R41.82 - ALTERED MENTAL STATUS, UNSPECIFIED SNOMED Code(s): 300359449 Comment: in setting of infection. improving. Status and Disposition: medicine inpatient. Currently in ICU. Attending: Teja Soto
[2017-05-12] MEDS: Cefepime 2 GM in Dextrose(*) 2 GM/50 ML BAG IV SCH ×3 (00:31→22:12)
[2017-05-12] MEDS: Heparin VIAL(*) 5000 UNITS/ML VIAL (FIVE THOUSAND) SUBCUT SCH ×3 (05:00→22:12)
[2017-05-12] MEDS: D5W 1/2 NS 1000 ML BAG* 1,000 ML IV SCH (05:00)
[2017-05-12 05:32] LABS: Hematocrit 37 % (42-52); Hemoglobin 12.3 g/dl (14.0-18.0); Mean Corpuscular HGB Conc 33 g/dl (31-36); Mean Corpuscular Hemoglobin 31 pg (27-31); Mean Corpuscular Volume 94 fL (80-94); Mean Platelet Volume 9 um3 (7.4-10.4); Red Blood Count 3.93 10^6/ul (4.0-5.4); Red Cell Distribution Width 14 % (10.5-15)
[2017-05-12 05:35] LABS: Add Diff/Slide Review? Slide Review Added; Comments Flag Yes
[2017-05-12 05:51] LABS: BUN/Creatinine Ratio 16.9 (8-20); Calcium 8.3 mg/dL (8.6-10.3); EGFR African American 105.2 (>60); EGFR Non-African American 81.8 (>60); Potassium 3.1 mmol/L (3.5-5.0)
[2017-05-12] MEDS: Aspirin Low Dose CHEW TAB* 81 MG PO SCH (08:32)
[2017-05-12] MEDS: Zinc Oxide 16% PASTE* (Butt Paste) 1 TUBE TOPICAL SCH ×3 (08:32→22:13)
[2017-05-12] MEDS ORDERED: Influenza VAC *QUAD* 2017-18* 0.5 ML SYRINGE IM ONE (09:00)
--- NOTE | 2017-05-12 09:39 | PN ---
Subjective Date of Service: 05/12/17 Interval History: Pt wbc down. Fever to 100.0 this AM. K low. was pocketing apple sauce yesterday. 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 No complaints Objective Active Medications: Acetaminophen (Tylenol Supp*) 650 mg [place] Q4H PRN PRN Reason: FEVER/PAIN Aspirin (Aspirin Low Dose Tab*) 81 mg PO DAILY [facility] Last Admin: 05/12/17 08:32 Dose: 81 mg Heparin Sodium (Porcine) (Heparin Vial(*)) 5,000 units SUBCUT Q8HR [facility] Last Admin: 05/12/17 05:00 Dose: 5,000 units Azithromycin 500 mg/ Sodium (Chloride) 250 mls @ 250 mls/hr IVPB Q24H [facility] Last Admin: 05/11/17 12:11 Dose: 250 mls/hr Dextrose/Sodium Chloride (D5w 1/2 Ns 1000 Ml Bag*) 1,000 mls @ 75 mls/hr IV PER RATE [facility] Stop: 05/12/17 09:59 Last Admin: 05/12/17 05:00 Dose: 75 mls/hr Cefepime HCl (Maxipime 2 Gm In Dextrose Duplex (*)) 2 gm in 50 mls @ 100 mls/ hr IV Q12HR [facility] Last Admin: 05/12/17 08:32 Dose: 100 mls/hr Potassium Chloride (Potassium Chloride 20 Meq/100 Ml Ivpremix*) 20 meq in 100 mls @ 50 mls/hr IV Q2H [facility] Stop: 05/12/17 15:59 Latanoprost (Xalatan 0.005%*) 1 drop BOTH EYES BEDTIME [facility] PRN Reason: Protocol Last Admin: 05/11/17 20:57 Dose: 1 drop Ondansetron HCl (Zofran Inj*) 4 mg IV Q6H PRN PRN Reason: NAUSEA Pantoprazole Sodium (Protonix Iv*) 40 mg IV Q24H [facility] Last Admin: 05/11/17 14:21 Dose: 40 mg Zinc Oxide (Soy's Butt Paste) 1 applic TOPICAL TID [facility] Last Admin: 05/12/17 08:32 Dose: 1 applic Vital Signs 05/11/17 05/11/17 05/11/17 10:00 11:00 12:00 Temperature 98.5 F Pulse Rate 82 89 Respiratory 27 30 27 Rate Blood Pressure 131/88 124/85 (mmHg) O2 Sat by Pulse 96 96 Oximetry 05/11/17 05/11/17 05/11/17 12:04 12:05 13:00 Temperature Pulse Rate 87 87 83 Respiratory 33 30 25 Rate Blood Pressure 128/80 113/69 (mmHg) O2 Sat by Pulse 90 89 97 Oximetry 05/11/17 05/11/17 05/11/17 14:00 15:00 15:54 Temperature 99.2 F Pulse Rate 79 84 Respiratory 26 29 Rate Blood Pressure 120/72 125/81 (mmHg) O2 Sat by Pulse 97 96 Oximetry 05/11/17 05/11/17 05/11/17 16:00 17:00 18:00 Temperature Pulse Rate 72 79 92 Respiratory 25 27 33 Rate Blood Pressure 127/74 133/80 (mmHg) O2 Sat by Pulse 94 96 97 Oximetry 05/11/17 05/11/17 05/11/17 19:00 19:06 19:15 Temperature Pulse Rate 86 86 Respiratory 27 29 24 Rate Blood Pressure 142/94 (mmHg) O2 Sat by Pulse 98 97 98 Oximetry 05/11/17 05/11/17 05/11/17 19:58 20:00 21:00 Temperature 99.4 F Pulse Rate 87 84 Respiratory 26 25 Rate Blood Pressure 106/79 122/79 (mmHg) O2 Sat by Pulse 95 96 Oximetry 05/11/17 05/11/17 05/11/17 21:43 22:00 23:00 Temperature Pulse Rate 83 82 80 Respiratory 27 25 22 Rate Blood Pressure 98/69 101/67 103/70 (mmHg) O2 Sat by Pulse 94 95 96 Oximetry 05/11/17 05/12/17 05/12/17 23:43 00:00 01:00 Temperature 98.7 F Pulse Rate 76 78 87 Respiratory 26 25 29 Rate Blood Pressure 111/72 102/69 (mmHg) O2 Sat by Pulse 96 95 91 Oximetry 05/12/17 05/12/17 05/12/17 02:00 03:00 03:20 Temperature 99.0 F Pulse Rate 84 77 Respiratory 25 28 Rate Blood Pressure 121/84 121/70 (mmHg) O2 Sat by Pulse 96 97 Oximetry 05/12/17 05/12/17 05/12/17 04:00 04:01 05:00 Temperature Pulse Rate 79 80 79 Respiratory 28 26 28 Rate Blood Pressure 101/68 91/61 (mmHg) O2 Sat by Pulse 96 96 95 Oximetry 05/12/17 05/12/17 05/12/17 06:00 07:00 07:49 Temperature Pulse Rate 78 79 Respiratory 27 27 20 Rate Blood Pressure 91/57 105/75 (mmHg) O2 Sat by Pulse 96 95 Oximetry 05/12/17 05/12/17 05/12/17 08:00 09:00 09:22 Temperature 100 F Pulse Rate 75 76 69 Respiratory 27 29 15 Rate Blood Pressure 98/63 112/65 (mmHg) O2 Sat by Pulse 96 96 97 Oximetry Oxygen Devices in Use Now: Nasal Cannula Appearance: NAD, chronically ill appearing. Eyes: No Scleral Icterus, PERRLA Ears/Nose/Mouth/Throat: NL Teeth, Lips, Gums, - - dry MM Neck: NL Appearance and Movements; NL JVP Respiratory: - - rhonchi b/l, no wheezing or rales Cardiovascular: NL Sounds; No Murmurs; No JVD, RRR Abdominal: NL Sounds; No Tenderness; No Distention Neurological: - - Oriented to name and year of but not current year. Thinks in [facility]. left arm weaker than right. 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: 05/12/17 05:21 05/12/17 05:21 Additional Lab and Data: Laboratory Results - last 24 hr 05/12/17 05/12/17 05:21 05:21 WBC 12.0 H RBC 3.93 L Hgb 12.3 L Hct 37 L MCV 94 MCH 31 MCHC 33 RDW 14 Plt Count 249 MPV 9 Neut % (Auto) 83.9 H Lymph % (Auto) 9.9 L [place] % (Auto) 5.5 Eos % (Auto) 0.2 Baso % (Auto) 0.5 Absolute Neuts (auto) 10.0 H Absolute Lymphs (auto) 1.2 Absolute Monos (auto) 0.7 Absolute Eos (auto) 0 Absolute Basos (auto) 0.1 Absolute Nucleated RBC 0 Nucleated RBC % 0 Sodium 143 Potassium 3.1 L Chloride 114 H Carbon Dioxide 24 Anion Gap 5 BUN 15 Creatinine 0.89 Est GFR ( Amer) 105.2 Est GFR (Non-Af Amer) 81.8 BUN/Creatinine Ratio 16.9 Glucose 133 H Calcium 8.3 L Microbiology and Other Data: Microbiology 05/11/17 19:00 Sputum Gram Stain - Final 05/10/17 11:12 Urine Urine Culture - Final No Growth (<1,000 CFU/mL) 05/10/17 10:43 Blood Venous Aerobic Blood Culture - Preliminary No Growth Day 1 05/10/17 10:43 Blood Venous Anaerobic Blood Culture - Preliminary No Growth Day 1 05/10/17 10:20 Blood Venous Aerobic Blood Culture - Preliminary No Growth Day 1 05/10/17 10:20 Blood Venous Anaerobic Blood Culture - Preliminary No Growth Day 1 Assess/Plan/Problems-Billing Assessment: 81 yo male presenting from [facility] w/ [facility] dementia, CAD s/p CABG, CM, AAA, HTN , NPH, CVA, requires danita lift p/w with severe sepsis 2/2 pneumonia. AMANDEEP ( resolved). On cefipime/azithromycin. dysphagia - Patient Problems (1) Severe sepsis Current Visit: Yes Status: Acute Code(s): A41.9 - SEPSIS, UNSPECIFIED ORGANISM; R65.20 - SEVERE SEPSIS WITHOUT SEPTIC SHOCK SNOMED Code(s): 34548954 Comment: SIRS (fever, leukocytosis) 2/2 pneumonia qSofa (AMS, tachypnea) cefipime 2g q12, azithromycin. s/p flagyl.) f/u sputum Cx: GPC, yeast MRSA negative legionella and Strep Pna urine antigens negative. (2) Pneumonia Current Visit: Yes Status: Acute Code(s): J18.9 - PNEUMONIA, UNSPECIFIED ORGANISM SNOMED Code(s): 730624733 Comment: plan as above. (3) CAD (coronary artery disease) Current Visit: Yes Status: Acute Code(s): I25.10 - ATHSCL HEART DISEASE OF [place] CORONARY ARTERY W/O ANG PCTRS SNOMED Code(s): 27376448 Comment: restart aspirin 81mg daily (4) AMANDEEP (acute kidney injury) Current Visit: Yes Status: Acute Code(s): N17.9 - ACUTE KIDNEY FAILURE, UNSPECIFIED SNOMED Code(s): 66539636 Comment: improved. (5) Hypernatremia Current Visit: Yes Status: Acute Code(s): E87.0 - HYPEROSMOLALITY AND HYPERNATREMIA SNOMED Code(s): 36005822 Comment: resolved. BMP daily. (6) Altered mental status Current Visit: Yes Status: Acute Code(s): R41.82 - ALTERED MENTAL STATUS, UNSPECIFIED SNOMED Code(s): 159276647 Comment: in setting of infection. improving. was pocketing applesauce. 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 Status and Disposition: medicine inpatient. Transfer out of ICU. Attending: Teja Soto
[2017-05-12 09:40] LABS: Magnesium 1.5 mg/dL (1.9-2.7)
[2017-05-12] MEDS: KCL 20 MEQ/100 ML IVPREMIX* 20 MEQ/100 ML BAG IV SCH ×3 (09:56→15:19)
[2017-05-12] MEDS: Azithromycin IV(*) 500 MG in NS 0.9% 250 ML* 250 ML IVPB SCH (12:13)
[2017-05-12] MEDS: Pantoprazole IV* 40 MG IV SCH (13:21)
[2017-05-12] MEDS: Latanoprost 0.005%* 2.5 ml BTL BOTH EYES SCH (22:12)
[2017-05-13] MEDS: Heparin VIAL(*) 5000 UNITS/ML VIAL (FIVE THOUSAND) SUBCUT SCH ×3 (05:40→21:52)
[2017-05-13 05:49] LABS: Hematocrit 40 % (42-52); Hemoglobin 13.3 g/dl (14.0-18.0); Mean Corpuscular HGB Conc 33 g/dl (31-36); Mean Corpuscular Hemoglobin 31 pg (27-31); Mean Corpuscular Volume 94 fL (80-94); Mean Platelet Volume 9 um3 (7.4-10.4); Red Cell Distribution Width 14 % (10.5-15); White Blood Count 10.7 10^3/ul (3.5-10.8)
[2017-05-13 06:00] LABS: BUN/Creatinine Ratio 13.2 (8-20); Calcium 8.6 mg/dL (8.6-10.3); EGFR African American 102.6 (>60); EGFR Non-African American 79.8 (>60); Magnesium 1.5 mg/dL (1.9-2.7); Potassium 3.6 mmol/L (3.5-5.0)
[2017-05-13] MEDS ORDERED: Magnesium Sulfate IV* 3 GM in NS 0.9% 100 ML* 100 ML IVPB ONE (08:00)
[2017-05-13] MEDS: Cefepime 2 GM in Dextrose(*) 2 GM/50 ML BAG IV SCH ×2 (08:35→21:45)
[2017-05-13] MEDS: Potassium Chlor TAB* 20 MEQ TAB.ER PO SCH ×2 (08:35→12:57)
[2017-05-13] MEDS: Aspirin Low Dose CHEW TAB* 81 MG PO SCH (08:35)
[2017-05-13] MEDS: Zinc Oxide 16% PASTE* (Butt Paste) 1 TUBE TOPICAL SCH ×3 (08:35→21:52)
--- NOTE | 2017-05-13 11:21 | RAD ---
INDICATION: Sepsis COMPARISON: Similar chest x-ray dated May 10, 2017 TECHNIQUE: Single AP portable view of the chest was obtained. FINDINGS: Image quality is compromised due to the relative inferiority of a portable chest x-ray. Similar to prior chest x-ray there is a mild degree of cardiomegaly. Postsurgical changes include surgical clips overlying the mediastinum and sternotomy wires. There is density obscuring the left lung base and obscuring the left hemidiaphragm. The patchy infiltrate seen on the prior chest x-ray over the right lung has improved slightly on today's chest x-ray. Visualized bones are normal for the patient's age. IMPRESSION: Persistent density overlying the left lung base could represent consolidation and/or pneumonia. The patchy density seen overlying the right lung on the May 10, 2017 chest x-ray has improved slightly on today's chest x-ray.
[2017-05-13] MEDS: Azithromycin IV(*) 500 MG in NS 0.9% 250 ML* 250 ML IVPB SCH (11:51)
[2017-05-13] MEDS: Pantoprazole IV* 40 MG IV SCH (12:57)
--- NOTE | 2017-05-13 14:00 | PN ---
Subjective Date of Service: 05/13/17 Interval History: Tmax 100 11am yesterday. 3L. Coughing still per daughter Cara who reports his baseline mentation is "comes and goes", can be easily distracted, oriented to person and knows lives at [facility], not year. Pt w/o complaint. Objective Active Medications: Acetaminophen (Tylenol Supp*) 650 mg [place] Q4H PRN PRN Reason: FEVER/PAIN Aspirin (Aspirin Low Dose Tab*) 81 mg PO DAILY [facility] Last Admin: 05/13/17 08:35 Dose: 81 mg Heparin Sodium (Porcine) (Heparin Vial(*)) 5,000 units SUBCUT Q8HR [facility] Last Admin: 05/13/17 12:57 Dose: 5,000 units Azithromycin 500 mg/ Sodium (Chloride) 250 mls @ 250 mls/hr IVPB Q24H [facility] Last Admin: 05/13/17 11:51 Dose: 250 mls/hr Cefepime HCl (Maxipime 2 Gm In Dextrose Duplex (*)) 2 gm in 50 mls @ 100 mls/ hr IV Q12HR [facility] Last Admin: 05/13/17 08:35 Dose: 100 mls/hr Latanoprost (Xalatan 0.005%*) 1 drop BOTH EYES BEDTIME [facility] PRN Reason: Protocol Last Admin: 05/12/17 22:12 Dose: 1 drop Ondansetron HCl (Zofran Inj*) 4 mg IV Q6H PRN PRN Reason: NAUSEA Pantoprazole Sodium (Protonix Iv*) 40 mg IV Q24H [facility] Last Admin: 05/13/17 12:57 Dose: 40 mg Zinc Oxide (Soy's Butt Paste) 1 applic TOPICAL TID [facility] Last Admin: 05/13/17 08:35 Dose: 1 applic Vital Signs 05/12/17 05/12/17 05/12/17 16:18 19:32 20:00 Temperature 98.6 F 97.6 F Pulse Rate 79 89 Respiratory 16 24 16 Rate Blood Pressure 129/76 105/64 (mmHg) O2 Sat by Pulse 100 100 99 Oximetry 05/12/17 05/13/17 05/13/17 23:58 00:00 03:58 Temperature 99.5 F 99.9 F Pulse Rate 79 82 Respiratory 16 16 Rate Blood Pressure 116/86 107/75 (mmHg) O2 Sat by Pulse 99 99 97 Oximetry 05/13/17 05/13/17 05/13/17 04:33 07:55 08:00 Temperature 97.4 F 97.7 F Pulse Rate 78 Respiratory 20 16 Rate Blood Pressure 121/81 (mmHg) O2 Sat by Pulse 97 Oximetry 05/13/17 11:57 Temperature 97.5 F Pulse Rate 84 Respiratory 20 Rate Blood Pressure 107/76 (mmHg) O2 Sat by Pulse 97 Oximetry Oxygen Devices in Use Now: Nasal Cannula Appearance: Chronically ill appearing. NAD Eyes: No Scleral Icterus, PERRLA Ears/Nose/Mouth/Throat: - - dry mucous membranes Respiratory: - - diffuse rhonchi, no wheezing, rales Abdominal: NL Sounds; No Tenderness; No Distention Extremities: No Edema Skin: No Rash or Ulcers Neurological: - - oriented to name. Not year or place. Recognizes his daughter. Stronger on left arm today, can raise off bed. Result Diagrams: 05/13/17 05:21 05/13/17 05:21 Additional Lab and Data: Laboratory Tests 05/10/17 05/10/17 05/10/17 10:20 10:20 10:20 WBC RBC Hgb Hct MCV MCH MCHC RDW Plt Count MPV Neut % (Auto) Lymph % (Auto) [place] % (Auto) Eos % (Auto) Baso % (Auto) Absolute Neuts (auto) Absolute Lymphs (auto) Absolute Monos (auto) Absolute Eos (auto) Absolute Basos (auto) Absolute Nucleated RBC Nucleated RBC % ESR INR (Anticoag Therapy) 1.06 APTT 28.5 Fibrinogen 632 H Patient Temperature ABG pH ABG pH (Temp Correct) ABG pCO2 ABG pCO2 (Temp Corrct ABG pO2 ABG pO2 (Temp Correct ABG HCO3 ABG O2 Saturation ABG Base Excess Respiration Rate O2 Delivery Device Ventilator Type Vent Mode FiO2 Inspiratory Time PEEP Pressure Support Pressure Control EPAP IPAP BiPAP Sodium 144 Potassium 3.8 Chloride 107 Carbon Dioxide 26 Anion Gap 11 BUN 32 H Creatinine 1.36 H Est GFR ( Amer) 64.5 Est GFR (Non-Af Amer) 50.2 BUN/Creatinine Ratio 23.5 H Glucose 135 H Lactic Acid Calcium 10.2 Magnesium Total Bilirubin 1.10 H AST 15 ALT 8 Alkaline Phosphatase 73 Total Creatine Kinase 314 H Troponin I 0.15 H* C-Reactive Protein 276.41 H B-Natriuretic Peptide 266 H Total Protein 7.7 Albumin 3.8 Globulin 3.9 Albumin/Globulin Ratio 1.0 Procalcitonin Urine Color Urine Appearance Urine pH Ur Specific [place] Urine Protein Urine Ketones Urine Blood Urine Nitrate Urine Bilirubin Urine Urobilinogen Ur Leukocyte Esterase Urine WBC (Auto) Urine RBC (Auto) Urine Bacteria Ur Random Creatinine Ur Random Sodium Urine Glucose Influenza A (Rapid) Influenza B (Rapid) 05/10/17 05/10/17 05/10/17 10:20 10:20 10:20 WBC 21.3 H RBC 4.83 Hgb 15.2 Hct 46 MCV 95 H MCH 32 H MCHC 33 RDW 14 Plt Count 310 MPV 9 Neut % (Auto) 92.0 H Lymph % (Auto) 4.4 L [place] % (Auto) 3.2 Eos % (Auto) 0.1 Baso % (Auto) 0.3 Absolute Neuts (auto) 19.6 H Absolute Lymphs (auto) 0.9 L Absolute Monos (auto) 0.7 Absolute Eos (auto) 0 Absolute Basos (auto) 0.1 Absolute Nucleated RBC 0 Nucleated RBC % 0 ESR 48 H INR (Anticoag Therapy) APTT Fibrinogen Patient Temperature ABG pH ABG pH (Temp Correct) ABG pCO2 ABG pCO2 (Temp Corrct ABG pO2 ABG pO2 (Temp Correct ABG HCO3 ABG O2 Saturation ABG Base Excess Respiration Rate O2 Delivery Device Ventilator Type Vent Mode FiO2 Inspiratory Time PEEP Pressure Support Pressure Control EPAP IPAP BiPAP Sodium Potassium Chloride Carbon Dioxide Anion Gap BUN Creatinine Est GFR ( Amer) Est GFR (Non-Af Amer) BUN/Creatinine Ratio Glucose Lactic Acid 1.3 Calcium Magnesium Total Bilirubin AST ALT Alkaline Phosphatase Total Creatine Kinase Troponin I C-Reactive Protein B-Natriuretic Peptide Total Protein Albumin Globulin Albumin/Globulin Ratio Procalcitonin 0.5 Urine Color Urine Appearance Urine pH Ur Specific [place] Urine Protein Urine Ketones Urine Blood Urine Nitrate Urine Bilirubin Urine Urobilinogen Ur Leukocyte Esterase Urine WBC (Auto) Urine RBC (Auto) Urine Bacteria Ur Random Creatinine Ur Random Sodium Urine Glucose Influenza A (Rapid) Influenza B (Rapid) 05/10/17 05/10/17 05/10/17 10:55 11:12 11:31 WBC RBC Hgb Hct MCV MCH MCHC RDW Plt Count MPV Neut % (Auto) Lymph % (Auto) [place] % (Auto) Eos % (Auto) Baso % (Auto) Absolute Neuts (auto) Absolute Lymphs (auto) Absolute Monos (auto) Absolute Eos (auto) Absolute Basos (auto) Absolute Nucleated RBC Nucleated RBC % ESR INR (Anticoag Therapy) APTT Fibrinogen Patient Temperature Not Reportable ABG pH 7.37 ABG pH (Temp Correct) Not Reportable ABG pCO2 42 ABG pCO2 (Temp Corrct Not Reportable ABG pO2 142 H ABG pO2 (Temp Correct Not Reportable ABG HCO3 24.1 ABG O2 Saturation 99.6 H ABG Base Excess -1.1 Respiration Rate Not Reportable O2 Delivery Device nasal cannula Ventilator Type Not Reportable Vent Mode Not Reportable FiO2 3 Inspiratory Time Not Reportable PEEP Not Reportable Pressure Support Not Reportable Pressure Control Not Reportable EPAP Not Reportable IPAP Not Reportable BiPAP Not Reportable Sodium Potassium Chloride Carbon Dioxide Anion Gap BUN Creatinine Est GFR ( Amer) Est GFR (Non-Af Amer) BUN/Creatinine Ratio Glucose Lactic Acid Calcium Magnesium Total Bilirubin AST ALT Alkaline Phosphatase Total Creatine Kinase Troponin I C-Reactive Protein B-Natriuretic Peptide Total Protein Albumin Globulin Albumin/Globulin Ratio Procalcitonin Urine Color Sophie Urine Appearance Cloudy Urine pH 5.0 Ur Specific [place] 1.027 Urine Protein 2+(100 mg/dl) H Urine Ketones 1+ H Urine Blood 3+ H Urine Nitrate Positive H Urine Bilirubin Negative Urine Urobilinogen Positive H Ur Leukocyte Esterase 2+ H Urine WBC (Auto) 3+(>20/hpf) H Urine RBC (Auto) 3+(>10/hpf) H Urine Bacteria 3+ H Ur Random Creatinine Ur Random Sodium Urine Glucose Negative Influenza A (Rapid) Negative Influenza B (Rapid) Negative 05/10/17 05/10/17 05/10/17 14:10 14:10 14:20 WBC RBC Hgb Hct MCV MCH MCHC RDW Plt Count MPV Neut % (Auto) Lymph % (Auto) [place] % (Auto) Eos % (Auto) Baso % (Auto) Absolute Neuts (auto) Absolute Lymphs (auto) Absolute Monos (auto) Absolute Eos (auto) Absolute Basos (auto) Absolute Nucleated RBC Nucleated RBC % ESR INR (Anticoag Therapy) APTT Fibrinogen Patient Temperature ABG pH ABG pH (Temp Correct) ABG pCO2 ABG pCO2 (Temp Corrct ABG pO2 ABG pO2 (Temp Correct ABG HCO3 ABG O2 Saturation ABG Base Excess Respiration Rate O2 Delivery Device Ventilator Type Vent Mode FiO2 Inspiratory Time PEEP Pressure Support Pressure Control EPAP IPAP BiPAP Sodium Potassium Chloride Carbon Dioxide Anion Gap BUN Creatinine Est GFR ( Amer) Est GFR (Non-Af Amer) BUN/Creatinine Ratio Glucose Lactic Acid 1.4 Calcium Magnesium Total Bilirubin AST ALT Alkaline Phosphatase Total Creatine Kinase Troponin I 0.15 H* C-Reactive Protein B-Natriuretic Peptide Total Protein Albumin Globulin Albumin/Globulin Ratio Procalcitonin Urine Color Urine Appearance Urine pH Ur Specific [place] Urine Protein Urine Ketones Urine Blood Urine Nitrate Urine Bilirubin Urine Urobilinogen Ur Leukocyte Esterase Urine WBC (Auto) Urine RBC (Auto) Urine Bacteria Ur Random Creatinine 176.07 Ur Random Sodium 41 Urine Glucose Influenza A (Rapid) Influenza B (Rapid) 05/10/17 05/10/17 05/11/17 19:34 23:57 05:22 WBC 14.5 H RBC 3.86 L Hgb 11.9 L Hct 37 L MCV 95 H MCH 31 MCHC 32 RDW 14 Plt Count 236 MPV 9 Neut % (Auto) 86.5 H Lymph % (Auto) 8.4 L [place] % (Auto) 4.8 Eos % (Auto) 0 Baso % (Auto) 0.3 Absolute Neuts (auto) 12.5 H Absolute Lymphs (auto) 1.2 Absolute Monos (auto) 0.7 Absolute Eos (auto) 0 Absolute Basos (auto) 0 Absolute Nucleated RBC 0.01 Nucleated RBC % 0 ESR INR (Anticoag Therapy) APTT Fibrinogen Patient Temperature ABG pH ABG pH (Temp Correct) ABG pCO2 ABG pCO2 (Temp Corrct ABG pO2 ABG pO2 (Temp Correct ABG HCO3 ABG O2 Saturation ABG Base Excess Respiration Rate O2 Delivery Device Ventilator Type Vent Mode FiO2 Inspiratory Time PEEP Pressure Support Pressure Control EPAP IPAP BiPAP Sodium Potassium Chloride Carbon Dioxide Anion Gap BUN Creatinine Est GFR ( Amer) Est GFR (Non-Af Amer) BUN/Creatinine Ratio Glucose Lactic Acid Calcium Magnesium Total Bilirubin AST ALT Alkaline Phosphatase Total Creatine Kinase Troponin I 0.16 H* 0.15 H* C-Reactive Protein B-Natriuretic Peptide Total Protein Albumin Globulin Albumin/Globulin Ratio Procalcitonin Urine Color Urine Appearance Urine pH Ur Specific [place] Urine Protein Urine Ketones Urine Blood Urine Nitrate Urine Bilirubin Urine Urobilinogen Ur Leukocyte Esterase Urine WBC (Auto) Urine RBC (Auto) Urine Bacteria Ur Random Creatinine Ur Random Sodium Urine Glucose Influenza A (Rapid) Influenza B (Rapid) 05/11/17 05/12/17 05/12/17 05:22 05:21 05:21 WBC 12.0 H RBC 3.93 L Hgb 12.3 L Hct 37 L MCV 94 MCH 31 MCHC 33 RDW 14 Plt Count 249 MPV 9 Neut % (Auto) 83.9 H Lymph % (Auto) 9.9 L [place] % (Auto) 5.5 Eos % (Auto) 0.2 Baso % (Auto) 0.5 Absolute Neuts (auto) 10.0 H Absolute Lymphs (auto) 1.2 Absolute Monos (auto) 0.7 Absolute Eos (auto) 0 Absolute Basos (auto) 0.1 Absolute Nucleated RBC 0 Nucleated RBC % 0 ESR INR (Anticoag Therapy) APTT Fibrinogen Patient Temperature ABG pH ABG pH (Temp Correct) ABG pCO2 ABG pCO2 (Temp Corrct ABG pO2 ABG pO2 (Temp Correct ABG HCO3 ABG O2 Saturation ABG Base Excess Respiration Rate O2 Delivery Device Ventilator Type Vent Mode FiO2 Inspiratory Time PEEP Pressure Support Pressure Control EPAP IPAP BiPAP Sodium 147 H 143 Potassium 3.3 L 3.1 L Chloride 116 H 114 H Carbon Dioxide 26 24 Anion Gap 5 5 BUN 21 15 Creatinine 1.03 0.89 Est GFR ( Amer) 88.9 105.2 Est GFR (Non-Af Amer) 69.1 81.8 BUN/Creatinine Ratio 20.4 H 16.9 Glucose 103 H 133 H Lactic Acid Calcium 8.5 L 8.3 L Magnesium 1.5 L Total Bilirubin AST ALT Alkaline Phosphatase Total Creatine Kinase Troponin I C-Reactive Protein B-Natriuretic Peptide Total Protein Albumin Globulin Albumin/Globulin Ratio Procalcitonin Urine Color Urine Appearance Urine pH Ur Specific [place] Urine Protein Urine Ketones Urine Blood Urine Nitrate Urine Bilirubin Urine Urobilinogen Ur Leukocyte Esterase Urine WBC (Auto) Urine RBC (Auto) Urine Bacteria Ur Random Creatinine Ur Random Sodium Urine Glucose Influenza A (Rapid) Influenza B (Rapid) 05/13/17 05/13/17 05:21 05:21 WBC 10.7 RBC 4.30 Hgb 13.3 L Hct 40 L MCV 94 MCH 31 MCHC 33 RDW 14 Plt Count 260 MPV 9 Neut % (Auto) 77.6 Lymph % (Auto) 14.2 L [place] % (Auto) 7.0 Eos % (Auto) 0.7 Baso % (Auto) 0.5 Absolute Neuts (auto) 8.3 H Absolute Lymphs (auto) 1.5 Absolute Monos (auto) 0.8 Absolute Eos (auto) 0.1 Absolute Basos (auto) 0.1 Absolute Nucleated RBC 0.01 Nucleated RBC % 0.1 ESR INR (Anticoag Therapy) APTT Fibrinogen Patient Temperature ABG pH ABG pH (Temp Correct) ABG pCO2 ABG pCO2 (Temp Corrct ABG pO2 ABG pO2 (Temp Correct ABG HCO3 ABG O2 Saturation ABG Base Excess Respiration Rate O2 Delivery Device Ventilator Type Vent Mode FiO2 Inspiratory Time PEEP Pressure Support Pressure Control EPAP IPAP BiPAP Sodium 142 Potassium 3.6 Chloride 111 Carbon Dioxide 25 Anion Gap 6 BUN 12 Creatinine 0.91 Est GFR ( Amer) 102.6 Est GFR (Non-Af Amer) 79.8 BUN/Creatinine Ratio 13.2 Glucose 110 H Lactic Acid Calcium 8.6 Magnesium 1.5 L Total Bilirubin AST ALT Alkaline Phosphatase Total Creatine Kinase Troponin I C-Reactive Protein B-Natriuretic Peptide Total Protein Albumin Globulin Albumin/Globulin Ratio Procalcitonin Urine Color Urine Appearance Urine pH Ur Specific [place] Urine Protein Urine Ketones Urine Blood Urine Nitrate Urine Bilirubin Urine Urobilinogen Ur Leukocyte Esterase Urine WBC (Auto) Urine RBC (Auto) Urine Bacteria Ur Random Creatinine Ur Random Sodium Urine Glucose Influenza A (Rapid) Influenza B (Rapid) Microbiology and Other Data: Microbiology 05/11/17 19:00 Sputum Gram Stain - Final 05/11/17 19:00 Sputum Sputum Culture - Preliminary YEAST Normal [place] 05/10/17 10:43 Blood Venous Aerobic Blood Culture - Preliminary No Growth Day 3 05/10/17 10:43 Blood Venous Anaerobic Blood Culture - Preliminary No Growth Day 3 05/10/17 10:20 Blood Venous Aerobic Blood Culture - Preliminary No Growth Day 3 05/10/17 10:20 Blood Venous Anaerobic Blood Culture - Preliminary No Growth Day 3 05/10/17 11:12 Urine Urine Culture - Final No Growth (<1,000 CFU/mL) 05/10/17 11:15 Nasal Nasal Screen MRSA (PCR)(EUGENIA) - Final Mrsa Negative 05/10/17 14:20 Urine Legionella Urinary Antigen - Final Negative Legionella 05/10/17 14:20 Urine Streptococcus pneumoniae Ag Screen - Final Negative S. pneumo Antigen 05/10/17 11:15 Nasopharyngeal Influenza Types A,B Antigen ([place]IA) - Final Specimen received for Influenza A/B Molecular testing Assess/Plan/Problems-Billing Assessment: 81 yo male presenting from [facility] w/ PMH dementia, CAD s/p CABG, CM, AAA, HTN , NPH, CVA, requires danita lift p/w with severe sepsis 2/2 pneumonia. AMANDEEP ( resolved). On cefipime/azithromycin. Yeast on culture, speciation pending. - Patient Problems (1) Severe sepsis Current Visit: Yes Status: Acute Code(s): A41.9 - SEPSIS, UNSPECIFIED ORGANISM; R65.20 - SEVERE SEPSIS WITHOUT SEPTIC SHOCK SNOMED Code(s): 61526603 Comment: SIRS (fever, leukocytosis) 2/2 pneumonia qSofa (AMS, tachypnea) cefipime 2g q12, azithromycin (stop today, got 4days of 500). s/p flagyl x 1 day. f/u sputum Cx: normal dorothea, 2+ yeast (speciation pending). add fluconazole repeat CXR with some improvment on right, persistent consolidation on left. MRSA negative legionella and Strep Pna urine antigens negative. (2) Pneumonia Current Visit: Yes Status: Acute Code(s): J18.9 - PNEUMONIA, UNSPECIFIED ORGANISM SNOMED Code(s): 276576215 Comment: plan as above. (3) CAD (coronary artery disease) Current Visit: Yes Status: Acute Code(s): I25.10 - ATHSCL HEART DISEASE OF [place] CORONARY ARTERY W/O ANG PCTRS SNOMED Code(s): 93304560 Comment: aspirin 81mg daily (4) AMANDEEP (acute kidney injury) Current Visit: Yes Status: Acute Code(s): N17.9 - ACUTE KIDNEY FAILURE, UNSPECIFIED SNOMED Code(s): 49915485 Comment: resolved (5) Altered mental status Current Visit: Yes Status: Acute Code(s): R41.82 - ALTERED MENTAL STATUS, UNSPECIFIED SNOMED Code(s): 362534839 Comment: in setting of infection. improving. 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 Status and Disposition: medicine inpatient. resident of [facility] Attending: Teja Soto
[2017-05-13] MEDS: Fluconazole 100 MG TAB* TAB PO SCH (15:04)
[2017-05-13] MEDS: Latanoprost 0.005%* 2.5 ml BTL BOTH EYES SCH (21:52)
[2017-05-14 06:04] LABS: Hematocrit 41 % (42-52); Hemoglobin 13.5 g/dl (14.0-18.0); Mean Corpuscular HGB Conc 33 g/dl (31-36); Mean Corpuscular Hemoglobin 31 pg (27-31); Mean Corpuscular Volume 94 fL (80-94); Mean Platelet Volume 9 um3 (7.4-10.4); Red Blood Count 4.39 10^6/ul (4.0-5.4); Red Cell Distribution Width 14 % (10.5-15); White Blood Count 10.3 10^3/ul (3.5-10.8)
[2017-05-14 06:09] LABS: Add Diff/Slide Review? Slide Review Added; Comments Flag Yes
[2017-05-14 06:24] LABS: BUN/Creatinine Ratio 12.1 (8-20); Calcium 8.6 mg/dL (8.6-10.3); EGFR African American 93.1 (>60); EGFR Non-African American 72.4 (>60); Magnesium 1.9 mg/dL (1.9-2.7); Potassium 3.6 mmol/L (3.5-5.0)
[2017-05-14] MEDS ORDERED: Magnesium Sulfate 1 GM IV* 1 GM/100 ML BAG IV ONE (07:39)
[2017-05-14] MEDS ORDERED: Potassium Chlor TAB* 20 MEQ TAB.ER PO ONE (08:20)
[2017-05-14] MEDS: Heparin VIAL(*) 5000 UNITS/ML VIAL (FIVE THOUSAND) SUBCUT SCH ×3 (09:06→22:55)
[2017-05-14] MEDS: Fluconazole 100 MG TAB* TAB PO SCH (09:28)
[2017-05-14] MEDS: Aspirin Low Dose CHEW TAB* 81 MG PO SCH (09:29)
[2017-05-14] MEDS: Cefepime 2 GM in Dextrose(*) 2 GM/50 ML BAG IV SCH ×2 (10:22→23:26)
[2017-05-14] MEDS ORDERED: Magnesium Hydroxide LIQ* 30 ML UDC PO ONE (13:40)
[2017-05-14] MEDS ORDERED: Bisacodyl SUPP* 10 MG SUPP PR ONE (13:40)
--- NOTE | 2017-05-14 14:06 | DS ---
CC: [facility] * DATE OF ADMISSION: 05/10/2017. DATE OF DISCHARGE: 05/15/2017. ADMITTING PROVIDER: Padilla Smart NP. ATTENDING PHYSICIAN: Teja Soto MD. CHIEF COMPLAINT: Altered mental status, fever, cough. PRINCIPAL DIAGNOSIS: Pneumonia. Sepsis PAST MEDICAL HISTORY: Dementia, NPH, CAD status post CABG, cardiomyopathy, AAA , atrial septal defect, hypertension, aspiration, venous stasis, dermatitis, incontinence, depression, CVA's, melanoma, constipation. HISTORY OF PRESENT ILLNESS AND HOSPITAL COURSE: Ms. Antonio Bergeron is an 81- year-old male with a complex PMH as above presenting from [facility] staff with concern for altered mental status, infection, who was unable to give history more than saying that he felt dry and denied any chest pain or shortness of breath. Please see history and physical for further details, but reviewing [facility] notes, admitting provider noted that the patient has had a decline in mentation, becoming more confused, more drowsy, not acting his normal self. He also had poor oral intake and son reported a cough for one week, though no reports of choking or aspiration witnessed. He had a fever at [facility] and that prompted transport to [facility]. There he was found to have a chest x-ray with bilateral pneumonia, had a leukocytosis of 21.3, tachycardia, heart rate 97, temperature 99.1, tachypnea 29, required three liters of oxygen. The patient was started on one dose of Vancomycin, Ciprofloxacin, and Azithromycin in the emergency room and then transitioned to Cefepime and Azithromycin and got one dose of Flagyl. Cefepime and Azithromycin were continued and the patient slowly improved. His white count resolved. The patient's temperature max was 100.0 on May 12. The patient's mentation slowly improved, but baseline is not oriented to time and intermittently to place. Remaining concern is his poor appetite which has not fully recovered. His blood cultures were negative. Urine culture was negative. Influenza PCR negative. MRSA nasal PCR negative. Legionella and streptococcus pneumonia, urine antigens both negative. Sputum cultures positive for just normal dorothea and 2+ yeast which appreciated to luisana vera. This was not deemed clinically significant on review with Infectious Disease physician. The patient at baseline requires Ross lift transfers and has a baseline deconditioning. His prognosis is guarded given his multiple comorbidities and infection. He will be discharged to complete an eight day total course of antibiotics with Ciprofloxacin completing the course for further four days. He was evaluated by speech language therapy given his altered mental status and recommended puree with pudding-thick liquids. This can be re-evaluated as an outpatient as the patient's mental status is slowly improving. He does have a history of aspiration.He had a melendez placed initially on admission given severe AMS, was removed 05/14 and voiding. DISCHARGE MEDICATIONS: 1. Ciprofloxacin 250 mg p.o. b.i.d. for 6 tabs. 2. Tramadol 50 mg p.o. b.i.d. scheduled and q.6 hours prn for pain. 3. Tamsulosin 0.4 mg p.o. q.p.m. 4. Senna/Docusate two tabs p.o. b.i.d. 5. Omeprazole 20 mg p.o. b.i.d. 6. Remeron 7.5 mg p.o. at bedtime. 7. Aspirin 81 mg daily. 8. Acetaminophen 1000 mg p.o. daily prn for fever or pain. 9. Zinc Oxide 16% paste (Soy's Butt Paste) topical t.i.d. 10. Travoprost Z 0.004% ophthalmic solution both eyes at bedtime. DISCHARGE DIET: Pureed, pudding-thick liquids. ACTIVITY LEVEL: Unchanged, but essentially bed down requiring Ross transfers given CVA, chronic deconditioning and progressive stepwise decline since fall. FOLLOW-UP: The patient will be followed up by doctors at [facility] and his primary care provider, Dr. Remy Bennett. TIME SPENT ON THIS DISCHARGE: 35 minutes. [id number] #: [id number] MTDD
[2017-05-14] MEDS: Pantoprazole IV* 40 MG IV SCH (15:18)
[2017-05-14] MEDS: Zinc Oxide 16% PASTE* (Butt Paste) 1 TUBE TOPICAL SCH ×3 (15:18→22:56)
--- NOTE | 2017-05-14 17:27 | PN ---
Subjective Date of Service: 05/14/17 Interval History: Pt states he feels "lousy". Denies any pains. Oriented to name, not time. Afebrile, hemodynamically stable, no leukocytosis. Poor po intake. Melendez removed this afternoon. no BMs since admission, dulcolax suppository and MoM given. Objective Active Medications: Acetaminophen (Tylenol Supp*) 650 mg SD Q4H PRN PRN Reason: FEVER/PAIN Aspirin (Aspirin Low Dose Tab*) 81 mg PO DAILY [facility] Last Admin: 05/14/17 09:29 Dose: 81 mg Heparin Sodium (Porcine) (Heparin Vial(*)) 5,000 units SUBCUT Q8HR [facility] Last Admin: 05/14/17 15:09 Dose: 5,000 units Cefepime HCl (Maxipime 2 Gm In Dextrose Duplex (*)) 2 gm in 50 mls @ 100 mls/ hr IV Q12HR [facility] Last Admin: 05/14/17 10:22 Dose: 100 mls/hr Latanoprost (Xalatan 0.005%*) 1 drop BOTH EYES BEDTIME [facility] PRN Reason: Protocol Last Admin: 05/13/17 21:52 Dose: 1 drop Ondansetron HCl (Zofran Inj*) 4 mg IV Q6H PRN PRN Reason: NAUSEA Pantoprazole Sodium (Protonix Iv*) 40 mg IV Q24H [facility] Last Admin: 05/14/17 15:18 Dose: Not Given Zinc Oxide (Soy's Butt Paste) 1 applic TOPICAL TID [facility] Last Admin: 05/14/17 15:45 Dose: 1 applic Vital Signs 05/13/17 05/13/17 05/14/17 20:00 20:13 00:00 Temperature 97.3 F Pulse Rate 80 Respiratory 16 20 Rate Blood Pressure 117/71 (mmHg) O2 Sat by Pulse 85 98 98 Oximetry 05/14/17 05/14/17 05/14/17 00:13 03:44 07:37 Temperature 98.4 F 98.0 F 97.4 F Pulse Rate 41 76 70 Respiratory 16 16 24 Rate Blood Pressure 123/82 118/77 102/71 (mmHg) O2 Sat by Pulse 98 96 98 Oximetry 05/14/17 05/14/17 05/14/17 08:00 11:37 16:04 Temperature 98.3 F Pulse Rate 74 Respiratory 28 28 Rate Blood Pressure 102/71 (mmHg) O2 Sat by Pulse 96 96 90 Oximetry Oxygen Devices in Use Now: None Appearance: NAD. more alert each day. Eyes: No Scleral Icterus, PERRLA Respiratory: - - rhonchi left though improved. no wheezing or rales. Cardiovascular: NL Sounds; No Murmurs; No JVD, RRR Extremities: No Edema, No Clubbing, Cyanosis Skin: - - moles, right cheek raised lesion. Neurological: - - oriented to name only. more alert. MILLER Lines/Tubes/Other Access: Clean, Dry and Intact Melendez - melendez removed today Nutrition: Taking PO's Result Diagrams: 05/14/17 05:44 05/14/17 05:44 Additional Lab and Data: Laboratory Results - last 24 hr 05/14/17 05/14/17 05:44 05:44 WBC 10.3 RBC 4.39 Hgb 13.5 L Hct 41 L MCV 94 MCH 31 MCHC 33 RDW 14 Plt Count 277 MPV 9 Neut % (Auto) 76.4 Lymph % (Auto) 14.9 L Becker % (Auto) 7.4 Eos % (Auto) 0.8 Baso % (Auto) 0.5 Absolute Neuts (auto) 7.9 H Absolute Lymphs (auto) 1.5 Absolute Monos (auto) 0.8 Absolute Eos (auto) 0.1 Absolute Basos (auto) 0.1 Absolute Nucleated RBC 0.01 Nucleated RBC % 0.1 Sodium 142 Potassium 3.6 Chloride 110 Carbon Dioxide 27 Anion Gap 5 BUN 12 Creatinine 0.99 Est GFR ( Amer) 93.1 Est GFR (Non-Af Amer) 72.4 BUN/Creatinine Ratio 12.1 Glucose 111 H Calcium 8.6 Magnesium 1.9 Microbiology and Other Data: Microbiology 05/10/17 10:43 Blood Venous Aerobic Blood Culture - Preliminary No Growth Day 4 05/10/17 10:43 Blood Venous Anaerobic Blood Culture - Preliminary No Growth Day 4 05/10/17 10:20 Blood Venous Aerobic Blood Culture - Preliminary No Growth Day 4 05/10/17 10:20 Blood Venous Anaerobic Blood Culture - Preliminary No Growth Day 4 05/11/17 19:00 Sputum Gram Stain - Final 05/11/17 19:00 Sputum Sputum Culture - Final Geotrichum Capitatum Normal Dorothea Assess/Plan/Problems-Billing Assessment: 81 yo male presenting from [facility] w/ PMH dementia, CAD s/p CABG, CM, AAA, HTN , NPH, CVA, requires danita lift p/w with severe sepsis 2/2 pneumonia. AMANDEEP ( resolved). On cefipime. s/p azithromycin. Melendez removed awaiting void. Discharge placed to [facility]. - Patient Problems (1) Severe sepsis Current Visit: Yes Status: Acute Code(s): A41.9 - SEPSIS, UNSPECIFIED ORGANISM; R65.20 - SEVERE SEPSIS WITHOUT SEPTIC SHOCK SNOMED Code(s): 69897167 Comment: SIRS (fever, leukocytosis) 2/2 pneumonia qSofa (AMS, tachypnea) cefipime 2g q12, s/p 4 days of 500mg azithromycin. s/p flagyl x 1 day. f/u sputum Cx: normal dorothea, 2+ yeast (geotrichum capitatum). stop fluconazole, likely not clinically significant. plan 4 more days cipro as outpatient. repeat CXR with some improvment on right, persistent consolidation on left. MRSA negative legionella and Strep Pna urine antigens negative. (2) Pneumonia Current Visit: Yes Status: Acute Code(s): J18.9 - PNEUMONIA, UNSPECIFIED ORGANISM SNOMED Code(s): 682690829 Comment: plan as above. (3) CAD (coronary artery disease) Current Visit: Yes Status: Acute Code(s): I25.10 - ATHSCL HEART DISEASE OF [place] CORONARY ARTERY W/O ANG PCTRS SNOMED Code(s): 96599402 Comment: aspirin 81mg daily (4) AMANDEEP (acute kidney injury) Current Visit: Yes Status: Acute Code(s): N17.9 - ACUTE KIDNEY FAILURE, UNSPECIFIED SNOMED Code(s): 07074121 Comment: resolved. melendez removed (placed given profound AMS in ICU). awaiting void. bladder scan prn. (5) Altered mental status Current Visit: Yes Status: Acute Code(s): R41.82 - ALTERED MENTAL STATUS, UNSPECIFIED SNOMED Code(s): 677305757 Comment: in setting of infection. improved. 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 aspiration precautions currently purreed with pudding thick liquids. Status and Disposition: medicine inpatient. discharged to [facility] but awaiting void and given lateness in day may physically leave 05/15. Attending: Teja Soto
[2017-05-14] MEDS: Latanoprost 0.005%* 2.5 ml BTL BOTH EYES SCH (22:55)
[2017-05-15] MEDS: Heparin VIAL(*) 5000 UNITS/ML VIAL (FIVE THOUSAND) SUBCUT SCH (05:51)
[2017-05-15 06:04] LABS: Hematocrit 40 % (42-52); Hemoglobin 12.9 g/dl (14.0-18.0); Mean Corpuscular HGB Conc 33 g/dl (31-36); Mean Corpuscular Hemoglobin 31 pg (27-31); Mean Corpuscular Volume 94 fL (80-94); Mean Platelet Volume 9 um3 (7.4-10.4); Red Cell Distribution Width 14 % (10.5-15); White Blood Count 13.5 10^3/ul (3.5-10.8)
[2017-05-15 06:06] LABS: Add Diff/Slide Review? Slide Review Added; Comments Flag Yes
[2017-05-15 06:21] LABS: BUN/Creatinine Ratio 10.4 (8-20); Calcium 9.2 mg/dL (8.6-10.3); EGFR African American 78.3 (>60); EGFR Non-African American 60.9 (>60); Magnesium 2.1 mg/dL (1.9-2.7)
[2017-05-15] MEDS: Cefepime 2 GM in Dextrose(*) 2 GM/50 ML BAG IV SCH (08:57)
[2017-05-15] MEDS: Aspirin Low Dose CHEW TAB* 81 MG PO SCH (08:57)
[2017-05-15] MEDS: Zinc Oxide 16% PASTE* (Butt Paste) 1 TUBE TOPICAL SCH (09:48)
[2017-05-15 10:35] VITALS: BP 108/64
== END 2017-05-15 12:25 | DRG 871 ==
LOC: ED 09:59 → ICU 11:44 → MEDTELE 05-12 12:56
PROVIDERS: ADMIT Internal Medicine; ATTEND Internal Medicine
DX: A41.9 Sepsis, unspecified organism (principal); J18.9 Pneumonia, unspecified organism; N17.9 Acute kidney failure, unspecified; E87.0 Hyperosmolality and hypernatremia; I11.0 Hypertensive heart disease with heart failure; F05 Delirium due to known physiological condition; I24.8 Other forms of acute ischemic heart disease; I50.9 Heart failure, unspecified; I42.9 Cardiomyopathy, unspecified; Q21.1 Atrial septal defect; R65.20 Severe sepsis without septic shock; F03.90 Unspecified dementia, unspecified severity, without behavioral disturbance, psychotic disturbance, mood disturbance, and anxiety; I73.9 Peripheral vascular disease, unspecified; E78.5 Hyperlipidemia, unspecified; I25.10 Atherosclerotic heart disease of native coronary artery without angina pectoris; K59.00 Constipation, unspecified; J42 Unspecified chronic bronchitis; K21.9 Gastro-esophageal reflux disease without esophagitis; M19.90 Unspecified osteoarthritis, unspecified site; F31.9 Bipolar disorder, unspecified; I87.8 Other specified disorders of veins; I71.4 Abdominal aortic aneurysm, without rupture; L30.9 Dermatitis, unspecified; Z66 Do not resuscitate; Z23 Encounter for immunization; Z95.1 Presence of aortocoronary bypass graft; Z88.1 Allergy status to other antibiotic agents; Z88.2 Allergy status to sulfonamides; Z87.891 Personal history of nicotine dependence; Z86.73 Personal history of transient ischemic attack (TIA), and cerebral infarction without residual deficits; Z85.820 Personal history of malignant melanoma of skin; Z79.82 Long term (current) use of aspirin
CPT/HCPCS: 36415; 36600; 70450; 71010; 80048; 80053; 81003; 81015; 82550; 82570; 82803; 83605; 83735; 83880; 84145; 84300; 84484; 85025; 85384; 85610; 85652; 85730; 86140; 87040; 87070; 87086; 87106; 87205; 87502; 87641; 87899; 90686; 93005; 94760; A9270-GY; J0456; J0692; J0744; J1644; J3370; J3475; J3480; J3490

== ENCOUNTER 2018-01-16 15:24 | Inpatient (IN) | payer MEDICARE, MEDICAID ==
[2018-01-16] MEDS ORDERED: Cefepime 2 GM in Dextrose(*) 2 GM/50 ML BAG IV ONE (15:56)
[2018-01-16] MEDS ORDERED: Ciprofloxacin 400MG IVPREMIX(* 400 MG/200 ML BAG IVPB ONE (15:56)
--- NOTE | 2018-01-16 15:56 | ED ---
Altered Mental Status - HPI Summary HPI Summary: This is Brenda person, documenting for attending, Rock Fletcher MD. This patient is an 82 year old M BIBA to [facility] from [facility] due to increased AMS and increased abdominal distention with nausea and vomitting. Records sent from [facility] reviewed. PMHx includes advanced dementia and CHF. Documents include MOLST form; patient is DNR. HPI is limited due to patients dementia. - History Of Current Complaint Chief Complaint: EDAbdPain Stated Complaint: GENERAL ILLNESS Time Seen by Provider: 01/16/18 15:38 Hx Obtained From: Medical Records Hx From Patient Unobtainable Due To: Dementia Onset/Duration: Unknown Aggravating Factor(s): Unknown Alleviating Factor(s): Nothing Associated Signs And Symptoms: Positive: Nausea, Vomiting - Allergies/Home Medications Allergies/Adverse Reactions: Allergies Allergy/AdvReac Type Severity Reaction Status Date / Time MS Sulfamethoxazole Allergy Mild GI Upset Verified 09/07/13 02:00 w/Trimethoprim [From Septra] MS Amoxicillin Allergy Unknown Unknown Verified 09/07/13 02:00 [From Augmentin] Reaction Details MS Clavulanic Acid Allergy Unknown Unknown Verified 09/07/13 02:00 [From Augmentin] Reaction Details Home Medications: Home Medications 2-Magdiel Supplement 120 ml PO BEDTIME 01/16/18 [History Confirmed 01/16/18] 2-Magdiel Supplement 120 ml PO TID AC 01/16/18 [History Confirmed 01/16/18] Acetaminophen [Acetaminophen Extra Strength] 1,000 mg PO DAILY PRN 01/16/18 [ History Confirmed 01/16/18] Aspirin EC TAB* [Ecotrin EC Low Dose 81 MG*] 81 mg PO QAM 01/16/18 [History Confirmed 01/16/18] Emollient Combination No.40 [Cetaphil] 1 applic TOPICAL Q12H 01/16/18 [History Confirmed 01/16/18] Mirtazapine TAB* [Remeron TAB*] 15 mg PO BEDTIME 01/16/18 [History Confirmed ] Omeprazole CAP* [Prilosec CAP* 20 MG] 20 mg PO QAM 01/16/18 [History Confirmed 01/16/18] Tamsulosin CAP* [Flomax CAP*] 0.4 mg PO DAILY 01/16/18 [History Confirmed ] Travoprost Z 0.004% OPHTH (NF) [Travatan Z 0.004% OPTH (NF)] 1 drop BOTH EYES BEDTIME 01/16/18 [History Confirmed 01/16/18] traMADol TAB* [Ultram*] 50 mg PO BID 01/16/18 [History Confirmed 01/16/18] PMH/Surg Hx/FS Hx/Imm Hx Endocrine/Hematology History: Denies: Hx Anticoagulant Therapy, Hx Blood Disorders, Hx Blood Transfusions, Hx Bone Marrow Disease, Hx Diabetes, Hx Systemic Lupus Erythematosus, Hx Sickle Cell Disease, Hx Thyroid Disease, Hx Anemia, Hx Unexplained Bleeding, Other Endocrine/Hematological Disorders Cardiovascular History: Reports: Hx Angina, Hx Cardiac Arrest, Hx Cardiomegaly, Hx Congestive Heart Failure, Hx Coronary Artery Disease, Hx Hypercholesterolemia , Hx Hypertension, Hx Peripheral Vascular Disease Denies: Hx Aneurysm, Hx Angioplasty, Hx Auto Implanted Cardiovert Defib, Hx Congenital Heart Disease, Hx Deep Vein Thrombosis, Hx Pacemaker/ICD, Hx Rheumatic Fever, Hx Syncope, Hx Valvular Heart Disease, Other Cardiovascular Problems/Disorders Respiratory History: Reports: Hx Chronic Bronchitis, Other Respiratory Problems/ Disorders - ASPIRATION Denies: Hx Asthma, Hx Chronic Obstructive Pulmonary Disease (COPD), Hx Cystic Fibrosis, Hx Lung Cancer, Hx Pleural Effusion, Hx Pneumonia, Hx Pulmonary Edema, Hx Pulmonary Embolism, Hx Seasonal Allergies, Hx Sleep Apnea GI History: Reports: Hx Gastroesophageal Reflux Disease, Other GI Disorders - gastritis Denies: Hx Cirrhosis, Hx Crohn's Disease, Hx Diverticulosis, Hx Gall Bladder Disease, Hx Gastrointestinal Bleed, Hx Hiatal Hernia, Hx Irritable Bowel, Hx Jaundice, Hx Obstructive Bowel, Hx Ileostomy, Hx Pyloric Stenosis, Hx Ulcer History: Denies: Hx Dialysis, Hx Renal Disease Musculoskeletal History: Reports: Hx Arthritis, Hx Back Problems Denies: Hx Rheumatoid Arthritis Sensory History: Denies: Hx Cataracts, Hx Contacts or Glasses, Hx Eye Injury, Hx Eye Prosthesis, Hx Legally Blind, Hx Vision Problem, Hx Deafness, Hx Hearing Aid, Hx Hearing Problem, Other Sensory Impairments Comment Only: Hx Glaucoma - unkown, Hx Macular Degeneration - unkown Opthamlomology History: Denies: Hx Cataracts, Hx Contacts or Glasses, Hx Eye Injury, Hx Eye Prosthesis, Hx Legally Blind, Hx Vision Problem, Other Sensory Impairments Comment Only: Hx Glaucoma - unkown, Hx Macular Degeneration - unkown Neurological History: Reports: Hx Dementia, Hx Headaches, Other Neuro Impairments/Disorders - normal pressure hydrocephalus Psychiatric History: Reports: Hx Depression, Hx Bipolar Disorder Denies: Hx Anxiety, Hx Attention Deficit Hyperactivity Disorder, Hx Eating Disorder, Hx Panic Disorder, Hx Post Traumatic Stress Disorder, Hx Inpatient Treatment, Hx Community Mental Health Tx, Hx Schizophrenia, Hx Suicide Attempt, Hx of Violent Episodes Against Others, Hx Substance Abuse, Other Psychiatric Issues/Disorders - Cancer History Hx Chemotherapy: No - Surgical History Surgery Procedure, Year, and Place: distant hx hiatal hernia. CABG/BYPASS GRAFT Hx Anesthesia Reactions: No - Immunization History Date of Tetanus Vaccine: UP TO DATE Date of Influenza Vaccine: 2012 Infectious Disease History: No Infectious Disease History: Denies: Hx Clostridium Difficile, Hx Hepatitis, Hx Human Immunodeficiency Virus (HIV), Hx of Known/Suspected MRSA, Hx Shingles, Hx Tuberculosis, Hx Known/ Suspected VRE, Hx Known/Suspected VRSA, History Other Infectious Disease, Traveled Outside the [place] in Last 30 Days - Family History Known Family History: Positive: Unknown - pt is unable to report FHx due to dementia - Social History Alcohol Use: None Substance Use Type: Reports: None Hx Tobacco Use: Yes Smoking Status (MU): Unknown if Ever Smoked Type: Cigarettes Have You Smoked in the Last Year: No - QUIT 25+ YRS AGO Review of Systems Positive: Other - increased AMS Gastrointestinal: Other - abdominal distention Positive: Vomiting, Nausea All Other Systems Reviewed And Are Negative: No - Comments Additional Review of Systems Comments: ROS is limited due to patient's dementia. Physical Exam - Summary Physical Exam Summary: Constitutional: Well-developed, Well-nourished,. (-) Distressed Skin: Warm, Dry HENT: Normocephalic; Atraumatic Eyes: Conjunctiva normal Neck: Musculoskeletal ROM normal neck. (-) JVD, (-) Stridor, (-) Tracheal deviation Cardio: Rhythm irregular, tachycardic rate, Heart sounds normal; Intact distal pulses; The pedal pulses are 2+ and symmetric. Radial pulses are 2+ and symmetric. (-) Murmur Pulmonary/Chest wall: Effort normal. (-) Respiratory distress, (-) Wheezes, (-) Rales Abd: Soft, (+),right sided abdominal tenderness, (+) Distension (likely ascites) , (-) Guarding, (-) Rebound Neuro: Rouses to loud vocal stimulus, moans, patient is non-verbal, GCS: 14 Musculoskeletal: (-) Edema Lymph: (-) Cervical adenopathy Triage Information Reviewed: Yes Vital Signs On Initial Exam: Initial Vitals Temp Pulse Resp BP Pulse Ox 100.8 F 88 18 102/71 96 01/16/18 15:25 01/16/18 15:25 01/16/18 15:25 01/16/18 15:25 01/16/18 15:25 Vital Signs Reviewed: Yes Diagnostics - Vital Signs Vital Signs Temp Pulse Resp BP Pulse Ox 01/16/18 15:25 100.8 F 88 18 102/71 96 - Laboratory Result Diagrams: 01/16/18 15:59 01/16/18 15:59 Lab Statement: Any lab studies that have been ordered have been reviewed, and results considered in the medical decision making process. - Radiology CXR Radiology Interpretation Completed By: Radiologist - LARGE AMOUNT OF FREE INTRAPERITONEAL AIR MOST CONSISTENT WITH A RUPTURED VISCUS. ED Physician has reviewed this report. - CT Brain CT CT Interpretation Completed By: Radiologist - 1. NO EVIDENCE FOR ACUTE INTRACRANIAL ABNORMALITY. 2. RELATIVELY SEVERE ATROPHY AND FINDINGS SUGGESTIVE OF MODERATE CHRONIC SMALL VESSEL ISCHEMIC CHANGES. ED Physician has reviewed this report. A/P CT Interpretation Completed By: Radiologist - 1. LARGE AMOUNT OF FREE INTRAPERITONEAL AIR CONSISTENT WITH A RUPTURED VISCUS. THERE IS DIFFUSE DISTENTION AND WALL THICKENING OF THE RECTOSIGMOID COLON SUGGESTIVE OF COLITIS. IN ADDITION THERE IS A RIGHT INGUINAL HERNIA CONTAINING NONDISTENDED SMALL BOWEL. 2. 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 ED Physician has reviewed this report. - EKG 1600 Cardiac Rate: Tachycardia - 135 BPM EKG Rhythm: Sinus Tachycardia EKG Interpretation: no STEMI Altered Mental Statu Course/Dx - Course Course Of Treatment: 82 year old M BIBA to [facility] from [facility] due to increased AMS and increased abdominal distention with nausea and vomitting. Records sent from [employer] reviewed. PMHx includes advanced dementia and CHF. Documents include MOLST form; patient is DNR. Lab work is remarkable for a lactic acid of 2.2. A CXR reveals: LARGE AMOUNT OF FREE INTRAPERITONEAL AIR MOST CONSISTENT WITH A RUPTURED VISCUS. A brain CT reveals: 1. NO EVIDENCE FOR ACUTE INTRACRANIAL ABNORMALITY. 2. RELATIVELY SEVERE ATROPHY AND FINDINGS SUGGESTIVE OF MODERATE CHRONIC SMALL VESSEL ISCHEMIC CHANGES. A CT A/P reveals: 1. LARGE AMOUNT OF FREE INTRAPERITONEAL AIR CONSISTENT WITH A RUPTURED VISCUS. THERE IS DIFFUSE DISTENTION AND WALL THICKENING OF THE RECTOSIGMOID COLON SUGGESTIVE OF COLITIS. IN ADDITION THERE IS A RIGHT INGUINAL HERNIA CONTAINING NONDISTENDED SMALL BOWEL. 2. 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 Patient is given IV fluids, Morphine, Fentanyl, Ciprofloxacin, and Maxipime. Dr. Jorgensen was informed of free air findings at 17: 00. Dr. Jorgensen came to see patient in ED. He states at 10% chance of surgery aroudn 19:00. At this time daughter does not want surgery, and son has yet to arrive. Patient is admitted to Dr. Hernandez. - Provider Notifications Discussed Care Of Patient With: Nguyễn Jorgensen - surgery Time Discussed With Above Provider: 17:09 Instructed by Provider To: Other - Dr. Jorgensen is aware the patient has free air. Around 19:00 Dr. Jorgensen reports there is 10% change of performing sx. Patietns son had not yet arrived, daughter does not want sx Discharge - Discharge Plan Referrals: Remy Bennett DO, DO [Primary Care Provider] - Consult Consult: At 17:57, Dr. Hernandez agrees to admit this patient.
[2018-01-16] MEDS ORDERED: NS 0.9% 1000 ML* 2,100 ML IV ONE (15:57)
[2018-01-16 16:18] LABS: Hematocrit 46 % (42-52); Hemoglobin 15.2 g/dl (14.0-18.0); Mean Corpuscular HGB Conc 34 g/dl (31-36); Mean Corpuscular Hemoglobin 31 pg (27-31); Mean Corpuscular Volume 93 fL (80-94); Mean Platelet Volume 10.1 um3 (7.4-10.4); Platelet Count 177 10^3/ul (150-450); Red Cell Distribution Width 15 % (10.5-15)
[2018-01-16 16:28] LABS: EGFR Non-African American 35.5 (>60)
[2018-01-16] MEDS ORDERED: Iodixanol* (CONTRAST) 320 MG/ML 100 ML SDV IV ONE (16:58)
--- NOTE | 2018-01-16 16:59 | RAD ---
INDICATION: Altered mental status abdominal distention. COMPARISON: Comparison is made with a prior chest x-ray study from May 13, 2017. TECHNIQUE: A portable view of the chest was obtained. FINDINGS: The patient appears to be status post coronary artery bypass surgery. The heart is within normal limits in size. The lungs are underinflated. There are small infiltrate at both lung bases most consistent with atelectasis. There is a large amount of free intraperitoneal air seen under both the right and left hemidiaphragms. The results of this exam were discussed with the referring clinician. IMPRESSION: LARGE AMOUNT OF FREE INTRAPERITONEAL AIR MOST CONSISTENT WITH A RUPTURED VISCUS.
--- NOTE | 2018-01-16 17:26 | RAD ---
INDICATION: Altered mental status. COMPARISON: Comparison is made of prior study from May 10, 2017. TECHNIQUE: Contiguous axial sections of the brain were obtained from the skull base to the vertex without contrast. FINDINGS: The ventricles, cisterns and sulci are enlarged consistent with diffuse atrophy. There are multiple focal areas of decreased density in the subcortical and periventricular white matter suggestive of moderate chronic small vessel ischemic changes. There is no evidence for hemorrhage. There appears to be a surgical jemma hole in the left frontal bone. The visualized portion of the paranasal sinuses and mastoid air cells appear clear. IMPRESSION: 1. NO EVIDENCE FOR ACUTE INTRACRANIAL ABNORMALITY. 2. RELATIVELY SEVERE ATROPHY AND FINDINGS SUGGESTIVE OF MODERATE CHRONIC SMALL VESSEL ISCHEMIC CHANGES.
--- NOTE | 2018-01-16 17:43 | RAD ---
INDICATION: Ascites right lower quadrant tenderness. COMPARISON: Comparison is made with a prior CT of the abdomen and pelvis from October 26, 2014. TECHNIQUE: A CT scan of the abdomen and pelvis was performed with intravenous and without oral contrast following intravenous injection of 88 ml of Visipaque 320 nonionic contrast. Contiguous axial sections were obtained from the lung bases through the symphysis pubis. Images were reconstructed in the coronal and sagittal planes. FINDINGS: There is mild dependent bilateral lower lobe subsegmental atelectasis. No pleural effusion is present. The liver and spleen are within normal limits in size. No significant focal abnormality is seen. The gallbladder appears distended. No calcified gallstones or wall thickening is noted. The pancreas appears atrophic and otherwise unremarkable. The adrenal glands appear within normal limits in size. The kidneys are small in size with bilateral cortical thinning. No hydronephrosis is seen. There is a slightly complex cyst arising from the lower pole of the left kidney measuring 2.8 cm in size which is unchanged in size from the prior study. There is a large aneurysm of the mid and distal abdominal aorta measuring up to 9.1 cm in transverse dimension previously measured 5.7 cm in transverse dimension. There is a large amount of intraluminal thrombus. The aneurysm extends into both common iliac arteries. The right common iliac artery aneurysm measures up to 5.8 cm in transverse dimension previously measured 5.2 cm in transverse dimension and the left common iliac artery measures up to 4.3 cm in transverse dimension previously measured 4.0 cm in transverse dimension. No significant enlarged retroperitoneal lymph nodes are seen. There is a large amount of free intraperitoneal air present throughout the abdomen and pelvis. No free intraperitoneal fluid or focal fluid collection is seen. The fundus and body of the stomach are abnormally rotated. The stomach is nondistended. The small bowel appears nondistended. There is diffuse distention of the rectosigmoid colon containing retained stool. There is also circumferential thickening of the wall of the rectosigmoid colon. There is moderate distention of the transverse colon. There is a right inguinal hernia which appears to contain a loop of nondistended small bowel. There are mild compression fractures of the superior endplates of the L1 and L2 vertebral bodies which are unchanged from the prior study. IMPRESSION: 1. LARGE AMOUNT OF FREE INTRAPERITONEAL AIR CONSISTENT WITH A RUPTURED VISCUS. THERE IS DIFFUSE DISTENTION AND WALL THICKENING OF THE RECTOSIGMOID COLON SUGGESTIVE OF COLITIS. IN ADDITION THERE IS A RIGHT INGUINAL HERNIA CONTAINING NONDISTENDED SMALL BOWEL. 2. 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
[2018-01-16] MEDS ORDERED: fentaNYL* 50 MCG/ML 2 ML VIAL (100 MCG VIAL) IV SLOW PU ONE (18:07)
[2018-01-16 18:56] LABS: ABS Basophils 0 10^3/ul (0-0.2); ABS Eosinophils 0 10^3/ul (0-0.6); ABS Lymphocytes 1.4 10^3/ul (1.0-4.8); ABS Monocytes 1.1 10^3/ul (0-0.8); ABS Neutrophils 19.5 10^3/ul (1.5-7.7)
[2018-01-16 19:34] LABS: Monocytes % 3 % (0-7)
[2018-01-16] MEDS ORDERED: Morphine INJ* 2 MG/ML 1 ML CARPUJECT IV PRN (19:40)
[2018-01-16] MEDS ORDERED: LORazepam INJ* 2 MG/ML 1 ML VIAL IV PUSH PRN (19:40)
[2018-01-16] MEDS ORDERED: Ondansetron INJ* 2 MG/ML VIAL IV PRN (19:40)
--- NOTE | 2018-01-16 19:45 | CONS ---
CC: [facility] * SURGICAL CONSULTATION REPORT: DATE OF CONSULT: 01/16/18. LOCATION: The patient was seen in the emergency room. HISTORY OF PRESENT ILLNESS: I was contacted by the emergency room physicians to evaluate Mr. Bergeron, an 82-year-old gentleman, who presented from [facility] with abdominal distention and abdominal pain for an unclear amount of time. He also had worsening altered mental status. The patient's workup in the emergency room included an x-ray, which showed free air under the diaphragm and we were contacted. He was noted to have a temperature of 100.8 and heart rate of 88. He was sent for a CT scan with IV contrast only when I came down to assess him. The patient also underwent a CT scan of the head. The patient is unable to give any history and there is not much history from the [facility] chart. It seems that at [facility], an ultrasound of the bladder was performed earlier today, which showed dilated colon and likely recommendation for CT scan. This prompted the patient's transfer to the emergency room. PAST MEDICAL HISTORY: Includes infrarenal abdominal aortic aneurysm; coronary artery disease, status post CABG; cardiomyopathy with ejection fraction of 45%, at least on H and P from last year; atrial septal defect; hypertension; venous stasis disease; NPH; dementia; incontinence; history of CVA; history of melanoma remotely, this was excised; and history of constipation. PAST SURGICAL HISTORY: Inguinal hernia repair and a melanoma resection, carotid endarterectomy and CABG. MEDICATIONS: Medication list is reviewed, does not include any steroids and only low-dose aspirin. ALLERGIES: His allergy list is reviewed. SOCIAL HISTORY: [facility]. He does have a MOLST form. This was reviewed. He has a daughter and a son and I spoke to the daughter, who said that when she last went to visit him, after sometime he did recognize her. It is unclear if he is recognizing her at this point today. REVIEW OF SYSTEMS: History of aspiration, history of pneumonia, shortness of breath. The patient is nonambulatory. The patient has coronary artery disease , status post CABG; urinary incontinence; chronic constipation. PHYSICAL EXAM: The patient entered with a heart rate of 88, at this point it is in the 140s to 130s; blood pressure with a MAP of 60; temperature of 100.8, this has not been repeated, this was from 3 p.m. today. The patient is somnolent, minimally arousable, noncommunicative. Head, Ears, Eyes, Nose, and Throat: Normocephalic. Sclerae are anicteric. Mucous membranes are dry. Neck : No lymphadenopathy. Abdomen is distended, tympanic, tender at all quadrants, but mostly in the left and right lower abdomen. No hernias are appreciated on this exam. Rectal exam was not performed. DIAGNOSTIC STUDIES: The patient's CT as well as x-rays reviewed. The patient also underwent a CT scan of the brain, which showed severe atrophy. The CT scan of the abdomen and pelvis did show the free, but it was unclear of the etiology other than hollow viscus structure. The patient did not have much in the way of free fluid. He had 9 cm abdominal aortic aneurysm. He did have thickening of the rectosigmoid colon suggestive of colitis. The stomach was mostly collapsed, but with what was described in the report as abnormally rotated. IMPRESSION AND PLAN: Abdominal catastrophe, most likely perforated viscus with the most likely issue being the colon, but stomach is also possibility and deep small bowel given the patient's history of melanoma and the unclarity within the CT scan and the presentation. The patient does have abdominal pain without rebound, but again with altered mental status, it is difficult to appreciate on physical exam. He does have elevated white blood cell count of 22 with left shift and an elevated lactate as well as CRP. He is showing compromise from a cardiovascular standpoint with elevated heart rate as well as an elevated creatinine, worsening altered mental status. I do not believe the patient will survive without a surgical intervention, but it is unclear if surgical intervention is the appropriate thing for this gentleman. I did review his MOLST form, which is DNR and states that he does not wish to be intubated, does not talk about surgical interventions, but does talk about limited interventions overall for him. This was reviewed with his daughter. The daughter does not have the patient's power of nurse behavioral health care, rather her brother does. I made multiple calls to him as she has as well and we were unable to reach him, but given the MOLST form as it stands and the fact that the daughter is holding off on any decision, there is no intervention that I would recommend that we would until the family is on board. I recommend IV fluids, n.p.o. status, antibiotics, and serial labs for Mr. Bergeron. Certainly, the daughter can make a decision to allow for surgical intervention as I described to her. This included exploratory laparotomy and likely bowel resection and likely ostomy. I went over the details of the procedure, discussed the possible prolonged hospitalizations and need for additional therapies and talked about the goal of discharge back to the halfway, but also spent time talking about other potential life-threatening issues that could occur. Her questions were answered and it is understandable that she is trying to process all this. She wishes her brother was involved and she will be looking towards talking to him. In the meantime, given all that is known at this point , I do not feel that it would be in Mr. Bergeron's best interest for me to pursue operation on him without the power of nurse behavioral health care's involvement. This discussion will be held with the hospitalist service as well as the emergency room physician and we will continue to follow closely. [id number]/ANTHONY #: [id number] ALLY
[2018-01-16] MEDS ORDERED: Morphine PCA ADULT* 5 MG/ML 30 ML PCA SCH (20:00)
[2018-01-16 22:24] VITALS: BP 85/63
[2018-01-16] MEDS: KCL 20 MEQ/100 ML IVPREMIX* 20 MEQ/100 ML BAG IV SCH ×2 (23:17→23:18)
--- NOTE | 2018-01-16 23:18 | HP ---
CC: [facility] * HISTORY AND PHYSICAL: DATE OF ADMISSION: 01/16/18 PRIMARY CARE PROVIDER: [facility]. ATTENDING PHYSICIAN WHILE IN THE HOSPITAL: Dr. Je Smyth * (report dictated by Padilla Smart NP). CHIEF COMPLAINT: 1. Abdominal pain. 2. Not eating. HISTORY OF PRESENTING ILLNESS: I would like to preface the report by saying that the patient has a significant amount of underlying dementia. He has altered mental status as well. He is not really able to give history. Most of the history is obtained from discussion with the patient's daughter and family, also reviewing nursing notes from [facility]. Essentially, Antonio is an 82-year -old male patient with a history of dementia, history of NPH, CAD. He has a history of AAA, ASD, cardiomyopathy, also carries a history of depression, constipation. He has had a history of aspiration pneumonia in the past. He carries a history of melanoma. He has got a history of venous stasis, incontinence, strokes, and a history of hypertension. He is coming in today because on Sunday it was noted, according to his family, that he was having issues with abdominal discomfort. He is having diarrhea and some nausea and vomiting, not really eating. This progressed over the last several days to the point where he was becoming more lethargic, not acting himself. He was becoming not eating. His abdominal girth was getting bigger. He was having increasing altered mental status and he just is not keeping anything down. The shelter was concerned. They sent him to the hospital to be evaluated. Ultimately, he was found to be septic. He was found to have ultimate perforated viscus, free intraperitoneal air. Because of this, we were asked to evaluate for admission. PAST MEDICAL HISTORY: Significant for: 1. Dementia. 2. NPH. 3. CAD. 4. Cardiomyopathy, last EF was about 45% to 50%. 5. History of AAA. 6. ASD. 7. Hypertension. 8. History of aspiration pneumonia. 9. Venous stasis. 10. Dermatitis. 11. Incontinence. 12. Depression. 13. History of CVA. 14. Melanoma. 15. Constipation. 16. BPH. 17. History of AFib. PAST SURGICAL HISTORY: 1. He has had CABG. 2. Heart catheterizations. 3. Carotid endarterectomy. 4. Inguinal hernia repair. 5. Melanoma resection. HOME MEDICATIONS: Include, 1. Tylenol Extra Strength 1000 mg daily as needed. 2. Flomax 0.4 mg daily. 3. He takes Prilosec 20 mg p.o. daily. 4. Cetaphil 1 application topically every 12 hours. 5. Remeron 15 mg p.o. daily. 6. Travatan 1 drop both eyes at bedtime. 7. TwoCal supplement 120 cc q.i.d. 8. Aspirin 81 mg daily. 9. Tramadol 50 mg p.o. b.i.d. ALLERGIES TO MEDICATIONS: BACTRIM and AUGMENTIN. FAMILY HISTORY: Unable to be obtained from the patient currently and essentially is noncontributory. SOCIAL HISTORY: He does not smoke. He does not drink. He lives at [facility]. Surrogate decision maker is his son, Momo and his daughter, Cara. REVIEW OF SYSTEMS: Unable to be obtained from the patient. PHYSICAL EXAMINATION GENERAL: At this time, Mr. Bergeron is an 82-year-old male patient; he appears to be acutely ill. He does appear to be uncomfortable. He is sitting in the ED stretcher. VITAL SIGNS: Blood pressure 102/71, O2 sat 96%, temperature 100.8. His heart rate is about 130. His respirations were between 28 and 32. HEENT: Head is atraumatic. Eyes: Sclerae were anicteric. Throat: Oral mucosa appears to be dry. No oropharyngeal erythema. NECK: Supple. LUNGS: Clear to auscultation. HEART: Sounds S1, S2. Irregularly irregular rate. No murmurs, rubs, or gallops. ABDOMEN: Tympanic on percussion. Bowel sounds were not present. He was distended. He was diffusely tender. He appeared to have a surgical abdomen. EXTREMITIES: Pulses were again 2+ throughout. He has no peripheral edema. NEUROLOGICAL: Again, he will respond to pain only. He will awaken to his name , but he is not making any meaningful conversation. He appears to be encephalopathic. He has no gross focal deficits noted. SKIN: Intact. LABORATORY DATA/DIAGNOSTIC STUDIES: Today revealing a WBC of 22, RBC of 4.90, hemoglobin of 15.2, hematocrit of 46, with platelet count of 177. His blood gas revealed a pH of 7.35, pCO2 of 51, bicarb of 23. Sodium was 147, potassium was 3.1, bicarb was 28, BUN 50, creatinine 1.83, his glucose was 156, lactic was 2.2, calcium 9.3. Total bili 1.4, AST 12, ALT 7, alk phos 37. Ammonia 39, CRP 198, albumin of 3.3. He had multiple imaging in the ED. He had a CT brain, which revealed no evidence of acute intracranial abnormality, relatively severe atrophy and findings suggestive of moderate chronic small vessel ischemic changes. He did have an EKG obtained today, which shows what appears to be atrial fibrillation, LVH, but no evidence of PVC. No ST elevation noted. Compared with the previous EKG, the AFib is now new, the LVH is more severe. He has ST elevation and now in V1 and V2, which he did not have previously that could be due to LVH pattern. Chest x-ray was obtained today and showed large amount of free intraperitoneal air, most consistent with ruptured viscus. CT abdomen and pelvis today showed large amount of free intraperitoneal air consistent with ruptured viscus. There is diffuse distention and wall thickening of the rectal and sigmoid colon suggestive of colitis. In addition, there is a right inguinal hernia containing nondistended small bowel, large 9.1 cm in distal abdominal aorta and common iliac artery aneurysm significantly increased in size from prior studies. Old medical records were reviewed. ASSESSMENT AND PLAN: Mr. Bergeron is an 82-year-old male patient with a complex medical history coming into the emergency department today with complaints of abdominal pain, now found to have a perforated viscus, also found to be in severe sepsis. We were asked to evaluate for admission. He will be admitted under inpatient status for: 1. Severe sepsis secondary to perforated viscus. A long discussion with the family given the patient's overall status and his health, particularly his cardiac disease. In fact, he has severe dementia at baseline. Thus, under my opinion and Dr. Jorgensen's opinion who evaluated the patient that surgery may not be the best option because you know he ultimately may not survive the surgery. Family really was leaning towards comfort. They feel that at this point they would not want to put his father through a very invasive procedure such as surgery. They really do not want intubation and most certainly he would be intubated given the fact that how septic he is now and he would most likely need to be intubated postoperatively. They do not want this. So I discussed comfort care with the family. They are in agreement. They do not want antibiotics. If he is awaken enough to eat, they would be okay allowing him to eat. I suspect though that his will be imminent in the next day or two. I offered morphine and Ativan and p.r.n. atropine as well sublingually. They are in agreement with this plan. They would like to keep him comfortable. I have asked [employer] to see the patient. I have consulted Hospitalist and Palliative care. 2. Dementia. Continue with supportive care. 3. History of coronary artery disease and cardiomyopathy. Again, we will continue with comfort care measures only now. 4. Abdominal aortic aneurysm, which is now severely increased in size. Comfort measures only. 5. Atrial septal defect. Comfort measures have been initiated. 6. History of cerebrovascular accident. Again, comfort measures. 7. Depression. Supportive care. 8. DVT prophylaxis: Comfort measures. 9. Fluids, electrolytes, and nutrition: If he is able to tolerate he can eat. I would be okay with him drinking for comfort measures. 10. Code status: He is a DNR/DNI. There is a MOLST with the patient. TIME SPENT: On the admission was 60 minutes, greater than half the time was spent [id number] with the patient obtaining my history and physical, other half time was spent going over the plan of care with the patient and implementing the plan of care. I did discuss the plan of care with my attending, Dr. Smyth, he is in agreement. PADILLA SMART, SLY [id number]/CPS #: [id number] ALLY
[2018-01-17] MEDS: Acetaminophen SUPP* 650 MG SUPP PR PRN (03:14)
--- NOTE | 2018-01-17 08:01 | PN ---
Subjective Date of Service: 01/17/18 Interval History: Pt opens his eyes to his name being called but otherwise does not respond to any questions. Objective Active Medications: Acetaminophen (Tylenol Supp*) 650 mg WI Q4H PRN PRN Reason: FEVER/PAIN Last Admin: 01/17/18 03:14 Dose: 650 mg Atropine Sulfate (Atropine 1% (Oral/Sl)*) 2 drop SL Q2H PRN PRN Reason: DISCOMFORT Morphine Sulfate (Morphine Inside Sales Specialist Adult* 5 Mg/Ml) 30 mls @ 0 mls/hr CLAIMS ANALYST .change Q24H JEFFREY; Protocol Last Admin: 01/16/18 21:22 Dose: 0.4 mls/hr Lorazepam (Ativan Inj*) 1 mg IV PUSH Q6H PRN PRN Reason: ANXIETY Ondansetron HCl (Zofran Inj*) 4 mg IV Q6H PRN PRN Reason: NAUSEA Oxygen Devices in Use Now: None Appearance: Elderly male lying in bed, minimally responsive, NAD Ears/Nose/Mouth/Throat: - - Dry oral mucosa Respiratory: - - Tachypnic, lungs clear anteriorly Cardiovascular: No Edema, - - Tachycardic Abdominal: - - Distended, pt grimaces to palpation of the RLQ Extremities: No Clubbing, Cyanosis Skin: No Nodules or Sclerosis Neurological: - - minimally responsive Result Diagrams: 01/16/18 15:59 01/16/18 15:59 Assess/Plan/Problems-Billing Mr Bergeron is an 82 yo M who has a h/o dementia, NPH, CAD, HTN and afib who presented to the ER from [facility] for abdominal pain and not eating and was found to have a probable perforated viscus with a large amount of free air. Given the patient's comorbidities the decision was made to place the patient on comfort care. He has been on a morphine drip. He appears to be comfortable. Nursing notes the patient has had stool oozing out. We discussed a flexi-seal however will hold off for now as the insertion may be more uncomfortable for the patient than just frequent cleaning. If rolling/cleaning appears to provoke significant discomfort will place flexi-seal. Continue comfort measures. - Patient Problems (1) Perforated abdominal viscus Current Visit: Yes Status: Acute Code(s): DNF8050 - SNOMED Code(s): 881426708 Comment: On comfort care. (2) Septic shock Current Visit: Yes Status: Acute Code(s): A41.9 - SEPSIS, UNSPECIFIED ORGANISM; R65.21 - SEVERE SEPSIS WITH SEPTIC SHOCK SNOMED Code(s): 39376379 Comment: Not treated as pt's family opted for comfort care only given his already debilitated state and comorbidities. (3) DVT prophylaxis Current Visit: Yes Status: Acute Code(s): FEI3984 - SNOMED Code(s): 701581805 Comment: None as pt on comfort care (4) DNR (do not resuscitate) Current Visit: Yes Status: Acute
--- NOTE | 2018-01-18 07:46 | PN ---
Subjective Date of Service: 01/18/18 Interval History: Pt's son stayed the night. Reportedly the patient was stable and comfortable all night. He did have a low grade fever overnight treated with cool clothes and ice packs. No periods of apnea. His son states that the only time his father vocalizes is when he is being turned. Objective Active Medications: Acetaminophen (Tylenol Supp*) 650 mg IL Q4H PRN PRN Reason: FEVER/PAIN Last Admin: 01/17/18 03:14 Dose: 650 mg Atropine Sulfate (Atropine 1% (Oral/Sl)*) 2 drop SL Q2H PRN PRN Reason: DISCOMFORT Morphine Sulfate (Morphine Experimental Aircraft Mechanic Adult* 5 Mg/Ml) 30 mls @ 0 mls/hr EAP COUNSELOR .change Q24H JEFFREY; Protocol Last Admin: 01/16/18 21:22 Dose: 0.4 mls/hr Lorazepam (Ativan Inj*) 1 mg IV PUSH Q6H PRN PRN Reason: ANXIETY Ondansetron HCl (Zofran Inj*) 4 mg IV Q6H PRN PRN Reason: NAUSEA Vital Signs - 8 hr 01/18/18 01/18/18 00:30 01:05 Temperature 100.6 F 99.6 F Oxygen Devices in Use Now: None Appearance: Eldelry male lying in bed, minimally responsive, NAD Eyes: No Scleral Icterus Ears/Nose/Mouth/Throat: - - dry oral mucosa Respiratory: - - tachypnic, clear anteriorly Cardiovascular: No Edema, - - irregularly irregular, mildly tachycardic Abdominal: - - minimal bowel sounds, distended Skin: - - no mottling, feet are cooler today than yesterday Neurological: - - minimally responsive Result Diagrams: 01/16/18 15:59 01/16/18 15:59 Microbiology and Other Data: Microbiology 01/16/18 16:02 Aerobic Blood Culture - Preliminary Blood Venous No Growth Day 1 Anaerobic Blood Culture - Preliminary No Growth Day 1 01/16/18 16:02 Aerobic Blood Culture - Preliminary Blood Venous No Growth Day 1 Anaerobic Blood Culture - Preliminary No Growth Day 1 Assess/Plan/Problems-Billing Mr Bergeron is an 82 yo M who has a h/o dementia, NPH, CAD, HTN and afib who presented to the ER from [facility] for abdominal pain and not eating and was found to have a probable perforated viscus with a large amount of free air. Given the patient's comorbidities the decision was made to place the patient on comfort care. He has been on a morphine drip. He appears to be comfortable, minor changes in respiratory and cardiac patterns. Pt continues to be incontinent of stool. Discussed care with the patient's family. Continue on current medication regimen. - Patient Problems (1) Perforated abdominal viscus Current Visit: Yes Status: Acute Code(s): [id number] - SNOMED Code(s): 357032663 Comment: On comfort care. (2) Septic shock Current Visit: Yes Status: Acute Code(s): A41.9 - SEPSIS, UNSPECIFIED ORGANISM; R65.21 - SEVERE SEPSIS WITH SEPTIC SHOCK SNOMED Code(s): 57067041 Comment: Not treated as pt's family opted for comfort care only given his already debilitated state and comorbidities. (3) DVT prophylaxis Current Visit: Yes Status: Acute Code(s): [id number] - SNOMED Code(s): 466309828 Comment: None as pt on comfort care (4) DNR (do not resuscitate) Current Visit: Yes Status: Acute
[2018-01-18] MEDS: Acetaminophen SUPP* 650 MG SUPP PR PRN (21:27)
[2018-01-18] MEDS: Atropine 1% (ORAL/SL)* 15 ML BTL SL PRN (21:36)
[2018-01-19] MEDS: Atropine 1% (ORAL/SL)* 15 ML BTL SL PRN ×3 (00:06→08:01)
[2018-01-19] MEDS ORDERED: Morphine PCA ADULT* 5 MG/ML 30 ML PCA SCH ×2 (07:52→11:19)
[2018-01-19] MEDS: Acetaminophen SUPP* 650 MG SUPP PR PRN (08:34)
--- NOTE | 2018-01-19 08:42 | PN ---
Subjective Date of Service: 01/19/18 Interval History: Pt much more tachypnic overnight. His family noticed gurgling respirations. Additionally he is now starting to become mottled. Objective Active Medications: Acetaminophen (Tylenol Supp*) 650 mg NE Q4H PRN PRN Reason: FEVER/PAIN Last Admin: 01/19/18 08:34 Dose: 650 mg Atropine Sulfate (Atropine 1% (Oral/Sl)*) 2 drop SL Q2H PRN PRN Reason: DISCOMFORT Last Admin: 01/19/18 08:01 Dose: 2 drop Morphine Sulfate (Morphine Committee Member Adult* 5 Mg/Ml) 30 mls @ 0 mls/hr MANAGEMENT ARCHITECT .change Q24H JEFFREY; Protocol Lorazepam (Ativan Inj*) 1 mg IV PUSH Q6H PRN PRN Reason: ANXIETY Ondansetron HCl (Zofran Inj*) 4 mg IV Q6H PRN PRN Reason: NAUSEA Oxygen Devices in Use Now: None Appearance: Elderly male non-responsive, NAD Ears/Nose/Mouth/Throat: - - dry oral mucosa Respiratory: Symmetrical Chest Expansion and Respiratory Effort, - - gurgling respirations noted, very tachypnic Cardiovascular: NL Sounds; No Murmurs; No JVD, - - tachycardic, feet are cool and cyanotic, L hand cyanotic Abdominal: - - distended soft abdomen, minimal BS Extremities: No Clubbing, Cyanosis Skin: No Nodules or Sclerosis Neurological: - - non-responsive Result Diagrams: 01/16/18 15:59 01/16/18 15:59 Microbiology and Other Data: Microbiology 01/16/18 16:02 Aerobic Blood Culture - Preliminary Blood Venous No Growth Day 1 Anaerobic Blood Culture - Preliminary No Growth Day 1 01/16/18 16:02 Aerobic Blood Culture - Preliminary Blood Venous No Growth Day 1 Anaerobic Blood Culture - Preliminary No Growth Day 1 Assess/Plan/Problems-Billing Mr Bergeron is an 82 yo M who has a h/o dementia, NPH, CAD, HTN and afib who presented to the ER from [facility] for abdominal pain and not eating and was found to have a probable perforated viscus with a large amount of free air. Given the patient's comorbidities the decision was made to place the patient on comfort care. Increase morphine drip to 4mg/hr this AM due to marked tachypnea. Pt with very shallow rapid breath sounds. No signs of pain or anxiety. Family present. Likely pt will pass away in next 12-24hr. Continue comfort measures only. - Patient Problems (1) Perforated abdominal viscus Current Visit: Yes Status: Acute Code(s): CGW4241 - SNOMED Code(s): 296385875 Comment: On comfort care. (2) Septic shock Current Visit: Yes Status: Acute Code(s): A41.9 - SEPSIS, UNSPECIFIED ORGANISM; R65.21 - SEVERE SEPSIS WITH SEPTIC SHOCK SNOMED Code(s): 42842090 Comment: Not treated as pt's family opted for comfort care only given his already debilitated state and comorbidities. (3) DVT prophylaxis Current Visit: Yes Status: Acute Code(s): KAY5386 - SNOMED Code(s): 596650296 Comment: None as pt on comfort care (4) DNR (do not resuscitate) Current Visit: Yes Status: Acute
--- NOTE | 2018-01-19 14:29 | PN ---
Progress Note - Progress Note Date of Service: 01/19/18 Note: I was notified by nursing that the patient at 1241. The patient's daughter was present in the room and his son was on the phone. Cause of was sepsis secondary to ruptured abdominal viscus.
--- NOTE | 2018-01-20 03:24 | DS ---
CC: Providers at [facility] * DISCHARGE SUMMARY: DATE OF ADMISSION: 01/16/18 DATE OF DISCHARGE: 01/19/18 PRIMARY CARE PROVIDER: [facility]. HOSPITAL COURSE: Mr. Bergeron is an 82-year-old male who was admitted to the [facility] on 01/16/18 after he was identified to be septic secondary to a ruptured abdominal viscus. Dr. Jorgensen spoke with the patient's family and ultimately, it was decided that comfort measures only would be the appropriate course of action for the patient. The patient was admitted to the medical floor on a morphine drip. Through 01/17/18 and 01/18/18, the patient appeared to be quite stable with relatively regular, not too tachypneic respirations. On 01/19/18, the patient was noted to be significantly tachypneic with very rapid shallow breaths. At that point, the patient's morphine drip was increased. He continued to be tachypneic. Again, the drip was increased as it appeared that he had significant work of breathing. Ultimately on 12:41 p.m., the patient passed from sepsis secondary to a ruptured abdominal viscus. The patient's family was present at the time of his passing. They have no questions. TIME SPENT: 10 minutes were spent on this discharge. [id number]/CPS #: [id number] [id number]
== END 2018-01-19 12:41 | disposition expired | DRG 871 ==
LOC: ED 15:24 → MED 19:36
PROVIDERS: ADMIT Hospitalist; ATTEND Hospitalist
DX: A41.1 Sepsis due to other specified staphylococcus (principal); G93.41 Metabolic encephalopathy; R65.21 Severe sepsis with septic shock; G91.2 (Idiopathic) normal pressure hydrocephalus; I42.9 Cardiomyopathy, unspecified; Q21.1 Atrial septal defect; R10.0 Acute abdomen; F03.90 Unspecified dementia, unspecified severity, without behavioral disturbance, psychotic disturbance, mood disturbance, and anxiety; I72.3 Aneurysm of iliac artery; I48.91 Unspecified atrial fibrillation; I11.9 Hypertensive heart disease without heart failure; I71.4 Abdominal aortic aneurysm, without rupture; Z66 Do not resuscitate; Z51.5 Encounter for palliative care; I87.8 Other specified disorders of veins; L30.9 Dermatitis, unspecified; R65.20 Severe sepsis without septic shock; K52.9 Noninfective gastroenteritis and colitis, unspecified; I25.10 Atherosclerotic heart disease of native coronary artery without angina pectoris; F32.9 Major depressive disorder, single episode, unspecified; N40.1 Benign prostatic hyperplasia with lower urinary tract symptoms; N39.498 Other specified urinary incontinence; K40.90 Unilateral inguinal hernia, without obstruction or gangrene, not specified as recurrent; Z86.73 Personal history of transient ischemic attack (TIA), and cerebral infarction without residual deficits; Z85.820 Personal history of malignant melanoma of skin; Z88.1 Allergy status to other antibiotic agents; Z98.61 Coronary angioplasty status; Z95.1 Presence of aortocoronary bypass graft; Z79.1 Long term (current) use of non-steroidal anti-inflammatories (NSAID); Z79.82 Long term (current) use of aspirin; Z79.899 Other long term (current) drug therapy
CPT/HCPCS: 36415; 70450; 71045; 74177; 80053; 82140; 82803; 83605; 83690; 85025; 85060; 86140; 87040; 87077; 87150; 87205; 93005; 99284; A9270-GY; J0692; J0744; J2270; J3010; Q9967